=== PATIENT | male | born 1970 | race Caucasian/White ===

== ENCOUNTER 2016-05-31 14:26 | Emergency (ER) | payer MEDICARE | END 2016-05-31 14:45 | disposition home or self-care (01) | LOC: D.ER 14:26 | DX: M54.2 Cervicalgia (principal) ==

== ENCOUNTER 2016-06-03 08:34 | Emergency (ER) | payer MEDICARE | END 2016-06-03 09:00 | disposition home or self-care (01) | LOC: D.ER 08:34 | DX: M50.20 Other cervical disc displacement, unspecified cervical region (principal); F20.9 Schizophrenia, unspecified ==

== ENCOUNTER 2016-06-08 16:46 | Emergency (ER) | payer MEDICARE | END 2016-06-08 19:50 | disposition left against medical advice (07) | LOC: D.ER 16:46 | DX: M54.2 Cervicalgia (principal) ==

== ENCOUNTER 2016-06-09 09:57 | Emergency (ER) | payer MEDICARE | END 2016-06-09 10:03 | disposition left against medical advice (07) | LOC: D.ER 09:57 | DX: M54.9 Dorsalgia, unspecified (principal) ==

== ENCOUNTER 2016-06-10 12:08 | Emergency (ER) | payer MEDICARE | END 2016-06-10 13:41 | disposition home or self-care (01) | LOC: D.ER 12:08 | DX: M54.2 Cervicalgia (principal); F19.10 Other psychoactive substance abuse, uncomplicated ==

== ENCOUNTER 2016-06-11 14:28 | Emergency (ER) | payer MEDICARE | END 2016-06-11 17:56 | disposition home or self-care (01) | LOC: D.ER 14:28 | DX: Z03.89 Encounter for observation for other suspected diseases and conditions ruled out (principal); Z76.5 Malingerer [conscious simulation]; F17.200 Nicotine dependence, unspecified, uncomplicated ==

== ENCOUNTER 2016-06-12 14:44 | Emergency (ER) | payer MEDICARE | END 2016-06-12 15:00 | disposition left against medical advice (07) | LOC: D.ER 14:44 | DX: Z02.9 Encounter for administrative examinations, unspecified (principal) ==

== ENCOUNTER 2016-06-14 11:00 | Emergency (ER) | payer MEDICARE | END 2016-06-14 12:22 | disposition home or self-care (01) | LOC: D.ER 11:00 | DX: M54.5 Low back pain (principal); M54.2 Cervicalgia; F17.200 Nicotine dependence, unspecified, uncomplicated; Z76.5 Malingerer [conscious simulation] ==

== ENCOUNTER 2016-06-16 14:37 | Emergency (ER) | payer MEDICARE | END 2016-06-16 15:41 | disposition home or self-care (01) | LOC: D.ER 14:37 | DX: S16.1XXA Strain of muscle, fascia and tendon at neck level, initial encounter (principal); W11.XXXA Fall on and from ladder, initial encounter; Y93.89 Activity, other specified; Y92.89 Other specified places as the place of occurrence of the external cause; F17.200 Nicotine dependence, unspecified, uncomplicated ==

== ENCOUNTER 2016-06-17 11:01 | Emergency (ER) | payer MEDICARE ==
[2016-06-17 11:55] LABS: APPEARANCE CLEAR (CLEAR); BILIRUBIN NEGATIVE (NEGATIVE); COLOR YELLOW (YELLOW); GLUCOSE NEGATIVE (NEGATIVE); KETONE NEGATIVE (NEGATIVE); LEUKOCYTE ESTERASE NEGATIVE (NEGATIVE); NITRITE NEGATIVE (NEGATIVE); PROTEIN NEGATIVE (NEGATIVE); UROBILINOGEN NORMAL (NORMAL)
[2016-06-17 11:56] LABS: BACTERIA FEW /hpf (NONE SEEN); EPITHELIAL CELLS 0-5 /hpf (0-5); MUCUS >1+ /lpf (NONE SEEN); WHITE CELLS - URINE 0-5 /hpf (0-5)
[2016-06-17 12:03] LABS: HEMOGLOBIN 11.3 g/dL (13.5-17.5); MCH 28.3 pg (26.0-34.0); MCHC 31.4 g/dL (31.0-37.0); MEAN PLATELET VOLUME 9.6 fL (7.4-10.4); PLATELET COUNT 200 10x3/uL (130-400); RDW 15.4 % (11.5-14.5); WBC 2.8 10x3/uL (4.8-10.8)
[2016-06-17 12:10] LABS: ALBUMIN 3.7 g/dL (3.4-5.0); ALKALINE PHOSPHATASE 64 U/L (46-116); ALT (SGPT) 22 U/L (10-68); BILIRUBIN - TOTAL 0.31 mg/dL (0.2-1.3); CALC OSMOLALITY 281 mosm/kg (275-300); CARBON DIOXIDE 28.5 mmol/L (21.0-32.0); CHLORIDE - SERUM 106 mmol/L (98-107); CREATININE - SERUM 1.1 mg/dL (0.6-1.3); GLUCOSE 95 mg/dL (74-106); POTASSIUM - SERUM 4.1 mmol/L (3.5-5.1); PROTEIN - SERUM 6.7 g/dL (6.4-8.2); SODIUM 139 mmol/L (136-145); UREA NITROGEN 23 mg/dL (7-18); eGFR NON AFRICAN AMERICAN 76 mL/min (90-120)
[2016-06-17 12:25] LABS: LYMPHOCYTES 20 % (15-50); MONOCYTES 3 % (2-11); NEUTROPHILS 77 % (40-80); PLATELET ESTIMATE NORMAL
[2016-06-17 12:48] LABS: UDS - AMPHET NEGATIVE QUAL (NEGATIVE); UDS - BARB NEGATIVE QUAL (NEGATIVE); UDS - BENZO NEGATIVE QUAL (NEGATIVE); UDS - COCAINE NEGATIVE QUAL (NEGATIVE); UDS - METH NEGATIVE QUAL (NEGATIVE); UDS - OPIATE POSITIVE QUAL (NEGATIVE); UDS - PCP NEGATIVE QUAL (NEGATIVE); UDS - THC NEGATIVE QUAL (NEGATIVE)
== END 2016-06-17 12:55 | disposition home or self-care (01) ==
LOC: D.ER 11:01
PROVIDERS: Emergency Medicine
DX: Z76.0 Encounter for issue of repeat prescription (principal); M54.5 Low back pain; M54.2 Cervicalgia; F20.9 Schizophrenia, unspecified; F23 Brief psychotic disorder; F17.200 Nicotine dependence, unspecified, uncomplicated

== ENCOUNTER 2016-06-18 12:04 | Emergency (ER) | payer MEDICARE | END 2016-06-18 13:24 | disposition left against medical advice (07) | LOC: D.ER 12:04 | DX: Z02.9 Encounter for administrative examinations, unspecified (principal) ==

== ENCOUNTER 2016-06-20 00:24 | Emergency (ER) | payer MEDICARE | END 2016-06-20 01:30 | disposition home or self-care (01) | LOC: D.ER 00:24 | DX: Z76.5 Malingerer [conscious simulation] (principal); F17.200 Nicotine dependence, unspecified, uncomplicated ==

== ENCOUNTER 2016-07-05 11:38 | Emergency (ER) | payer MEDICARE | END 2016-07-05 15:08 | disposition home or self-care (01) | LOC: D.ER 11:38 | DX: M54.2 Cervicalgia (principal); Z76.5 Malingerer [conscious simulation]; F20.9 Schizophrenia, unspecified ==

== ENCOUNTER 2016-07-06 20:28 | Emergency (ER) | payer MEDICARE ==
[2016-07-06 21:39] LABS: BASOPHILS 0.7 % (0.0-2.0); EOSINOPHILS 2.5 % (0-7); HEMATOCRIT 36.1 % (42.0-54.0); HEMOGLOBIN 11.6 g/dL (13.5-17.5); IMMATURE GRANULOCYTES 0.2 % (0-5); LYMPHOCYTES 25.1 % (15-50); MCH 28.6 pg (26.0-34.0); MCHC 32.1 g/dL (31.0-37.0); MCV 88.9 fL (80.0-100.0); MEAN PLATELET VOLUME 10.2 fL (7.4-10.4); MONOCYTES 8.9 % (2-11); NEUTROPHILS 62.6 % (40-80); RBC 4.06 10x6/uL (4.20-6.10); RDW 15.3 % (11.5-14.5); WBC 5.6 10x3/uL (4.8-10.8)
[2016-07-06 21:40] LABS: PLATELET COUNT 268 10x3/uL (130-400)
[2016-07-06 21:50] LABS: ALBUMIN 3.8 g/dL (3.4-5.0); ALKALINE PHOSPHATASE 80 U/L (46-116); ALT (SGPT) 32 U/L (10-68); BILIRUBIN - TOTAL 0.29 mg/dL (0.2-1.3); CALC OSMOLALITY 279 mosm/kg (275-300); CALCIUM 8.7 mg/dL (8.5-10.1); CARBON DIOXIDE 31.8 mmol/L (21.0-32.0); CHLORIDE - SERUM 103 mmol/L (98-107); CREATININE - SERUM 0.9 mg/dL (0.6-1.3); GLUCOSE 79 mg/dL (74-106); PROTEIN - SERUM 6.9 g/dL (6.4-8.2); SODIUM 140 mmol/L (136-145); UREA NITROGEN 17 mg/dL (7-18); eGFR NON AFRICAN AMERICAN > 90 mL/min (90-120)
[2016-07-06 21:52] LABS: APPEARANCE CLEAR (CLEAR); BILIRUBIN NEGATIVE (NEGATIVE); COLOR YELLOW (YELLOW); GLUCOSE NEGATIVE (NEGATIVE); KETONE NEGATIVE (NEGATIVE); LEUKOCYTE ESTERASE NEGATIVE (NEGATIVE); NITRITE NEGATIVE (NEGATIVE); PROTEIN NEGATIVE (NEGATIVE); SPECIFIC GRAVITY 1.015 (1.005-1.020); UROBILINOGEN NORMAL (NORMAL)
[2016-07-06 21:53] LABS: BACTERIA NONE SEEN /hpf (NONE SEEN); EPITHELIAL CELLS NSEEN /hpf (0-5); RED CELLS - URINE 0-5 /hpf (0-5); WHITE CELLS - URINE NSEEN /hpf (0-5)
[2016-07-06 21:55] LABS: UDS - AMPHET NEGATIVE QUAL (NEGATIVE); UDS - BARB NEGATIVE QUAL (NEGATIVE); UDS - BENZO NEGATIVE QUAL (NEGATIVE); UDS - COCAINE NEGATIVE QUAL (NEGATIVE); UDS - METH NEGATIVE QUAL (NEGATIVE); UDS - OPIATE NEGATIVE QUAL (NEGATIVE); UDS - PCP NEGATIVE QUAL (NEGATIVE); UDS - THC NEGATIVE QUAL (NEGATIVE)
== END 2016-07-06 22:30 | disposition home or self-care (01) ==
LOC: D.ER 20:28
PROVIDERS: Physician Assistant Medical
DX: F11.10 Opioid abuse, uncomplicated (principal); F20.9 Schizophrenia, unspecified; F17.200 Nicotine dependence, unspecified, uncomplicated

== ENCOUNTER 2016-07-07 18:31 | Emergency (ER) | payer MEDICARE ==
[2016-07-07 19:48] LABS: BASOPHILS 0.6 % (0.0-2.0); EOSINOPHILS 2.2 % (0-7); HEMATOCRIT 33.8 % (42.0-54.0); HEMOGLOBIN 10.8 g/dL (13.5-17.5); LYMPHOCYTES 33.3 % (15-50); MCH 28.5 pg (26.0-34.0); MCV 89.2 fL (80.0-100.0); MONOCYTES 9.2 % (2-11); NEUTROPHILS 54.7 % (40-80); PLATELET COUNT 262 10x3/uL (130-400); RBC 3.79 10x6/uL (4.20-6.10); RDW 15.3 % (11.5-14.5)
[2016-07-07 19:53] LABS: ALBUMIN 3.7 g/dL (3.4-5.0); ANION GAP 9.7 mmol/L (8-16); BILIRUBIN - TOTAL 0.32 mg/dL (0.2-1.3); CALCIUM 8.7 mg/dL (8.5-10.1); CARBON DIOXIDE 30.4 mmol/L (21.0-32.0); POTASSIUM - SERUM 4.1 mmol/L (3.5-5.1); PROTEIN - SERUM 6.5 g/dL (6.4-8.2)
[2016-07-07 19:54] LABS: CREATININE - SERUM 1.2 mg/dL (0.6-1.3)
[2016-07-07 20:28] LABS: UDS - AMPHET NEGATIVE QUAL (NEGATIVE); UDS - BARB NEGATIVE QUAL (NEGATIVE); UDS - BENZO NEGATIVE QUAL (NEGATIVE); UDS - COCAINE NEGATIVE QUAL (NEGATIVE); UDS - METH NEGATIVE QUAL (NEGATIVE); UDS - OPIATE NEGATIVE QUAL (NEGATIVE); UDS - PCP NEGATIVE QUAL (NEGATIVE); UDS - THC NEGATIVE QUAL (NEGATIVE)
[2016-07-07 20:32] LABS: APPEARANCE CLEAR (CLEAR); BILIRUBIN NEGATIVE (NEGATIVE); COLOR YELLOW (YELLOW); GLUCOSE NEGATIVE (NEGATIVE); KETONE NEGATIVE (NEGATIVE); LEUKOCYTE ESTERASE NEGATIVE (NEGATIVE); NITRITE NEGATIVE (NEGATIVE); PROTEIN NEGATIVE (NEGATIVE); UROBILINOGEN NORMAL (NORMAL)
[2016-07-07 20:33] LABS: BACTERIA NONE SEEN /hpf (NONE SEEN); EPITHELIAL CELLS 0-5 /hpf (0-5); RED CELLS - URINE 0-5 /hpf (0-5); WHITE CELLS - URINE NSEEN /hpf (0-5)
== END 2016-07-08 02:57 ==
LOC: D.ER 18:31
PROVIDERS: Physician Assistant Medical
DX: R45.851 Suicidal ideations (principal); F32.9 Major depressive disorder, single episode, unspecified; F17.200 Nicotine dependence, unspecified, uncomplicated

== ENCOUNTER 2016-07-15 08:25 | Emergency (ER) | payer MEDICARE | END 2016-07-15 10:30 | disposition home or self-care (01) | LOC: D.ER 08:25 | DX: S16.1XXA Strain of muscle, fascia and tendon at neck level, initial encounter (principal); X58.XXXA Exposure to other specified factors, initial encounter; Y93.89 Activity, other specified; Y92.89 Other specified places as the place of occurrence of the external cause; F17.200 Nicotine dependence, unspecified, uncomplicated ==

== ENCOUNTER 2016-07-17 08:37 | Emergency (ER) | payer MEDICARE ==
[2016-07-17 08:58] LABS: BASOPHILS 0.7 % (0.0-2.0); EOSINOPHILS 3.4 % (0-7); HEMATOCRIT 37.6 % (42.0-54.0); HEMOGLOBIN 11.7 g/dL (13.5-17.5); LYMPHOCYTES 36.8 % (15-50); MCH 28.3 pg (26.0-34.0); MCHC 31.1 g/dL (31.0-37.0); MCV 90.8 fL (80.0-100.0); MEAN PLATELET VOLUME 9.8 fL (7.4-10.4); MONOCYTES 13.8 % (2-11); NEUTROPHILS 45.3 % (40-80); RBC 4.14 10x6/uL (4.20-6.10); RDW 15.5 % (11.5-14.5); WBC 4.1 10x3/uL (4.8-10.8)
[2016-07-17 09:10] LABS: PLATELET COUNT 193 10x3/uL (130-400)
[2016-07-17 09:17] LABS: ALBUMIN 3.9 g/dL (3.4-5.0); ALKALINE PHOSPHATASE 79 U/L (46-116); ALT (SGPT) 71 U/L (10-68); BILIRUBIN - TOTAL 0.34 mg/dL (0.2-1.3); CALC OSMOLALITY 280 mosm/kg (275-300); CALCIUM 8.8 mg/dL (8.5-10.1); CARBON DIOXIDE 33.6 mmol/L (21.0-32.0); CHLORIDE - SERUM 101 mmol/L (98-107); CREATININE - SERUM 0.9 mg/dL (0.6-1.3); GLUCOSE 84 mg/dL (74-106); POTASSIUM - SERUM 4.2 mmol/L (3.5-5.1); SODIUM 140 mmol/L (136-145); UREA NITROGEN 21 mg/dL (7-18); eGFR NON AFRICAN AMERICAN > 90 mL/min (90-120)
[2016-07-17 09:20] LABS: UDS - AMPHET NEGATIVE QUAL (NEGATIVE); UDS - BARB NEGATIVE QUAL (NEGATIVE); UDS - BENZO NEGATIVE QUAL (NEGATIVE); UDS - COCAINE NEGATIVE QUAL (NEGATIVE); UDS - METH NEGATIVE QUAL (NEGATIVE); UDS - OPIATE NEGATIVE QUAL (NEGATIVE); UDS - PCP NEGATIVE QUAL (NEGATIVE); UDS - THC NEGATIVE QUAL (NEGATIVE)
[2016-07-17 09:29] LABS: APPEARANCE CLEAR (CLEAR); BILIRUBIN NEGATIVE (NEGATIVE); COLOR YELLOW (YELLOW); GLUCOSE NEGATIVE (NEGATIVE); KETONE NEGATIVE (NEGATIVE); LEUKOCYTE ESTERASE NEGATIVE (NEGATIVE); NITRITE NEGATIVE (NEGATIVE); PROTEIN NEGATIVE (NEGATIVE); SPECIFIC GRAVITY 1.015 (1.005-1.020); UROBILINOGEN NORMAL (NORMAL)
== END 2016-07-17 09:35 | disposition home or self-care (01) ==
LOC: D.ER 08:37
PROVIDERS: Emergency Medicine Emergency Medical Services
DX: F20.9 Schizophrenia, unspecified (principal); F11.10 Opioid abuse, uncomplicated; F17.200 Nicotine dependence, unspecified, uncomplicated

== ENCOUNTER 2016-07-18 22:45 | Emergency (ER) | payer MEDICARE | END 2016-07-19 00:50 | disposition home or self-care (01) | LOC: D.ER 22:45 | DX: M62.830 Muscle spasm of back (principal); S29.012A Strain of muscle and tendon of back wall of thorax, initial encounter; V89.2XXA Person injured in unspecified motor-vehicle accident, traffic, initial encounter; Y93.89 Activity, other specified; Y92.410 Unspecified street and highway as the place of occurrence of the external cause; F17.200 Nicotine dependence, unspecified, uncomplicated ==

== ENCOUNTER 2016-07-21 17:01 | Emergency (ER) | payer MEDICARE | END 2016-07-21 17:02 | disposition left against medical advice (07) | LOC: D.ER 17:01 | DX: Z02.9 Encounter for administrative examinations, unspecified (principal) ==

== ENCOUNTER 2016-07-23 14:54 | Emergency (ER) | payer MEDICARE | END 2016-07-23 16:46 | disposition home or self-care (01) | LOC: D.ER 14:54 | DX: S01.111A Laceration without foreign body of right eyelid and periocular area, initial encounter (principal); Y04.2XXA Assault by strike against or bumped into by another person, initial encounter; Y93.89 Activity, other specified; Y92.019 Unspecified place in single-family (private) house as the place of occurrence of the external cause; R60.0 Localized edema; F17.200 Nicotine dependence, unspecified, uncomplicated ==

== ENCOUNTER 2016-07-25 10:15 | Emergency (ER) | payer MEDICARE | END 2016-07-25 11:35 | disposition home or self-care (01) | LOC: D.ER 10:15 | DX: S01.1 Open wound of eyelid and periocular area (principal); Y04.2XXS Assault by strike against or bumped into by another person, sequela; Y92.89 Other specified places as the place of occurrence of the external cause; F17.200 Nicotine dependence, unspecified, uncomplicated ==

== ENCOUNTER 2016-07-27 22:30 | Emergency (ER) | payer MEDICARE | END 2016-07-28 00:30 | disposition home or self-care (01) | LOC: D.ER 22:30 | DX: R51 Headache (principal); G89.29 Other chronic pain; F20.9 Schizophrenia, unspecified ==

== ENCOUNTER 2016-07-30 01:18 | Emergency (ER) | payer MEDICARE | END 2016-07-30 02:35 | disposition home or self-care (01) | LOC: D.ER 01:18 | DX: F41.9 Anxiety disorder, unspecified (principal); F20.9 Schizophrenia, unspecified; F31.9 Bipolar disorder, unspecified; F17.200 Nicotine dependence, unspecified, uncomplicated ==

== ENCOUNTER 2016-07-31 08:40 | Emergency (ER) | payer MEDICARE | END 2016-07-31 08:41 | disposition left against medical advice (07) | LOC: D.ER 08:40 | DX: Z02.9 Encounter for administrative examinations, unspecified (principal) ==

== ENCOUNTER 2016-08-01 14:57 | Emergency (ER) | payer MEDICARE | END 2016-08-01 15:04 | disposition left against medical advice (07) | LOC: D.ER 14:57 | DX: R52 Pain, unspecified (principal) ==

== ENCOUNTER 2016-08-01 15:12 | Emergency (ER) | payer MEDICARE | END 2016-08-01 21:22 | disposition left against medical advice (07) | LOC: D.ER 15:12 | DX: Z02.9 Encounter for administrative examinations, unspecified (principal) ==

== ENCOUNTER 2016-08-02 09:34 | Emergency (ER) | payer MEDICARE | END 2016-08-02 10:58 | LOC: D.ER 09:34 | DX: M54.2 Cervicalgia (principal); F20.9 Schizophrenia, unspecified; F41.1 Generalized anxiety disorder; F31.9 Bipolar disorder, unspecified; F17.200 Nicotine dependence, unspecified, uncomplicated ==

== ENCOUNTER 2016-09-28 16:19 | Emergency (ER) | payer MEDICARE | END 2016-09-28 20:10 | disposition home or self-care (01) | LOC: D.ER 16:19 | DX: S16.1XXA Strain of muscle, fascia and tendon at neck level, initial encounter (principal); X58.XXXA Exposure to other specified factors, initial encounter; Y93.89 Activity, other specified; Y92.89 Other specified places as the place of occurrence of the external cause; F95.2 Tourette's disorder; F20.9 Schizophrenia, unspecified; F17.200 Nicotine dependence, unspecified, uncomplicated ==

== ENCOUNTER 2016-09-29 08:59 | Emergency (ER) | payer MEDICARE | END 2016-09-29 09:52 | disposition home or self-care (01) | LOC: D.ER 08:59 | DX: Z76.0 Encounter for issue of repeat prescription (principal); F23 Brief psychotic disorder; F20.9 Schizophrenia, unspecified; F95.2 Tourette's disorder; F31.9 Bipolar disorder, unspecified; F17.200 Nicotine dependence, unspecified, uncomplicated ==

== ENCOUNTER 2016-09-30 08:35 | Emergency (ER) | payer MEDICARE | END 2016-09-30 08:55 | disposition home or self-care (01) | LOC: D.ER 08:35 | DX: F20.9 Schizophrenia, unspecified (principal); R51 Headache; F31.89 Other bipolar disorder; F17.200 Nicotine dependence, unspecified, uncomplicated ==

== ENCOUNTER 2016-10-03 03:23 | Emergency (ER) | payer MEDICARE | END 2016-10-03 03:42 | disposition home or self-care (01) | LOC: D.ER 03:23 | DX: L03.116 Cellulitis of left lower limb (principal); M72.2 Plantar fascial fibromatosis; F31.89 Other bipolar disorder; F20.9 Schizophrenia, unspecified; F95.2 Tourette's disorder ==

== ENCOUNTER → 2016-10-05 01:22 | Emergency (ER) | payer MEDICARE | END | disposition left against medical advice (07) | LOC: D.ER 01:22 | DX: Z02.9 Encounter for administrative examinations, unspecified (principal) ==

== ENCOUNTER 2016-10-05 10:34 | Emergency (ER) | payer MEDICARE | END 2016-10-05 13:42 | disposition home or self-care (01) | LOC: D.ER 10:34 | DX: Z02.9 Encounter for administrative examinations, unspecified (principal) ==

== ENCOUNTER 2016-10-06 12:04 | Emergency (ER) | payer MEDICARE | END 2016-10-06 14:08 | disposition home or self-care (01) | LOC: D.ER 12:04 | DX: G89.29 Other chronic pain (principal); S90.812A Abrasion, left foot, initial encounter; S90.811A Abrasion, right foot, initial encounter; X58.XXXA Exposure to other specified factors, initial encounter; Y93.89 Activity, other specified; Y92.89 Other specified places as the place of occurrence of the external cause; F31.89 Other bipolar disorder; F20.9 Schizophrenia, unspecified; F95.2 Tourette's disorder ==

== ENCOUNTER 2016-10-06 23:58 | Emergency (ER) | payer MEDICARE | END 2016-10-07 00:15 | disposition left against medical advice (07) | LOC: D.ER 23:58 | DX: T14.8 Other injury of unspecified body region (principal); Y04.2XXA Assault by strike against or bumped into by another person, initial encounter; Y93.89 Activity, other specified; Y92.89 Other specified places as the place of occurrence of the external cause ==

== ENCOUNTER 2016-10-07 16:13 | Emergency (ER) | payer MEDICARE | END 2016-10-07 16:48 | disposition home or self-care (01) | LOC: D.ER 16:13 | DX: Z02.9 Encounter for administrative examinations, unspecified (principal) ==

== ENCOUNTER 2016-10-08 03:02 | Emergency (ER) | payer MEDICARE ==
[2016-10-08 03:32] LABS: APPEARANCE CLEAR (CLEAR); BILIRUBIN 1+ (NEGATIVE); COLOR YELLOW (YELLOW); GLUCOSE NEGATIVE (NEGATIVE); KETONE SMALL mg/dL (NEGATIVE); LEUKOCYTE ESTERASE NEGATIVE (NEGATIVE); NITRITE NEGATIVE (NEGATIVE); PROTEIN NEGATIVE (NEGATIVE); SPECIFIC GRAVITY 1.025 (1.005-1.020); UROBILINOGEN NORMAL (NORMAL)
[2016-10-08 03:33] LABS: UDS - AMPHET NEGATIVE QUAL (NEGATIVE); UDS - BARB NEGATIVE QUAL (NEGATIVE); UDS - BENZO NEGATIVE QUAL (NEGATIVE); UDS - COCAINE POSITIVE QUAL (NEGATIVE); UDS - METH NEGATIVE QUAL (NEGATIVE); UDS - OPIATE NEGATIVE QUAL (NEGATIVE); UDS - PCP NEGATIVE QUAL (NEGATIVE); UDS - THC NEGATIVE QUAL (NEGATIVE)
[2016-10-08 03:35] LABS: BASOPHILS 0.4 % (0-2); EOSINOPHILS 1.6 % (0-7); HEMATOCRIT 39.5 % (42.0-54.0); HEMOGLOBIN 12.8 g/dL (13.5-17.5); LYMPHOCYTES 19.4 % (15-50); MCH 29.6 pg (26.0-34.0); MCHC 32.4 g/dL (31.0-37.0); MCV 91.2 fL (80.0-100.0); MEAN PLATELET VOLUME 9.9 fL (7.4-10.4); MONOCYTES 6.5 % (2-11); NEUTROPHILS 72.1 % (40-80); RBC 4.33 10x6/uL (4.20-6.10); RDW 14.7 % (11.5-14.5); WBC 5.1 10x3/uL (4.8-10.8)
[2016-10-08 03:36] LABS: PLATELET COUNT 282 10x3/uL (130-400)
[2016-10-08 03:47] LABS: ALKALINE PHOSPHATASE 108 U/L (46-116); ALT (SGPT) 38 U/L (10-68); BILIRUBIN - TOTAL 0.52 mg/dL (0.2-1.3); CALC OSMOLALITY 290 mosm/kg (275-300); CALCIUM 9.4 mg/dL (8.5-10.1); CARBON DIOXIDE 33.3 mmol/L (21.0-32.0); CHLORIDE - SERUM 106 mmol/L (98-107); CREATININE - SERUM 1.1 mg/dL (0.6-1.3); GLUCOSE 98 mg/dL (74-106); POTASSIUM - SERUM 3.7 mmol/L (3.5-5.1); PROTEIN - SERUM 7.6 g/dL (6.4-8.2); SODIUM 144 mmol/L (136-145); UREA NITROGEN 23 mg/dL (7-18); eGFR NON AFRICAN AMERICAN 76 mL/min (90-120)
== END 2016-10-08 05:35 | disposition home or self-care (01) ==
LOC: D.ER 03:02
PROVIDERS: Family Medicine
DX: F14.10 Cocaine abuse, uncomplicated (principal); F31.89 Other bipolar disorder; F20.9 Schizophrenia, unspecified

== ENCOUNTER 2017-03-19 18:58 | Emergency (ER) | payer MEDICARE | END 2017-03-19 20:53 | disposition home or self-care (01) | LOC: D.ER 18:58 | DX: L97.519 Non-pressure chronic ulcer of other part of right foot with unspecified severity (principal); Z76.0 Encounter for issue of repeat prescription; F17.200 Nicotine dependence, unspecified, uncomplicated ==

== ENCOUNTER 2017-03-20 19:00 | Emergency (ER) | payer MEDICARE | END 2017-03-20 20:09 | disposition home or self-care (01) | LOC: D.ER 19:00 | DX: F11.10 Opioid abuse, uncomplicated (principal) ==

== ENCOUNTER 2017-03-24 01:21 | Emergency (ER) | payer MEDICARE | END 2017-03-24 01:56 | disposition home or self-care (01) | LOC: D.ER 01:21 | DX: S90.811A Abrasion, right foot, initial encounter (principal); S90.812A Abrasion, left foot, initial encounter; W20.8XXA Other cause of strike by thrown, projected or falling object, initial encounter; Y93.89 Activity, other specified; Y92.029 Unspecified place in mobile home as the place of occurrence of the external cause; L97.519 Non-pressure chronic ulcer of other part of right foot with unspecified severity ==

== ENCOUNTER 2017-03-27 02:22 | Emergency (ER) | payer MEDICARE ==
[2017-03-27 04:24] LABS: BASOPHILS 0.7 % (0-2); EOSINOPHILS 1.5 % (0-7); HEMATOCRIT 32.4 % (42.0-54.0); HEMOGLOBIN 10.5 g/dL (13.5-17.5); LYMPHOCYTES 29.1 % (15-50); MCH 30.4 pg (26.0-34.0); MCHC 32.4 g/dL (31.0-37.0); MCV 93.9 fL (80.0-100.0); MEAN PLATELET VOLUME 9.8 fL (7.4-10.4); MONOCYTES 13.3 % (2-11); NEUTROPHILS 55.4 % (40-80); PLATELET COUNT 271 10x3/uL (130-400); RBC 3.45 10x6/uL (4.20-6.10); RDW 14.5 % (11.5-14.5); WBC 4.1 10x3/uL (4.8-10.8)
[2017-03-27 04:46] LABS: ALBUMIN 3.2 g/dL (3.4-5.0); ALKALINE PHOSPHATASE 147 U/L (46-116); ALT (SGPT) 81 U/L (10-68); BILIRUBIN - TOTAL 0.24 mg/dL (0.2-1.3); CALC OSMOLALITY 297 mosm/kg (275-300); CALCIUM 8.5 mg/dL (8.5-10.1); CHLORIDE - SERUM 110 mmol/L (98-107); CREATININE - SERUM 1.1 mg/dL (0.6-1.3); GLUCOSE 145 mg/dL (74-106); POTASSIUM - SERUM 3.6 mmol/L (3.5-5.1); PROTEIN - SERUM 6.5 g/dL (6.4-8.2); SODIUM 145 mmol/L (136-145); UREA NITROGEN 28 mg/dL (7-18); eGFR NON AFRICAN AMERICAN 76 mL/min (90-120)
[2017-03-27 07:43] LABS: UDS - AMPHET NEGATIVE QUAL (NEGATIVE); UDS - BARB NEGATIVE QUAL (NEGATIVE); UDS - BENZO NEGATIVE QUAL (NEGATIVE); UDS - COCAINE POSITIVE QUAL (NEGATIVE); UDS - OPIATE NEGATIVE QUAL (NEGATIVE); UDS - PCP NEGATIVE QUAL (NEGATIVE); UDS - THC NEGATIVE QUAL (NEGATIVE)
[2017-03-27 07:47] LABS: APPEARANCE CLEAR (CLEAR); BILIRUBIN NEGATIVE (NEGATIVE); COLOR YELLOW (YELLOW); GLUCOSE NEGATIVE (NEGATIVE); KETONE NEGATIVE (NEGATIVE); NITRITE NEGATIVE (NEGATIVE); PROTEIN NEGATIVE (NEGATIVE); SPECIFIC GRAVITY 1.025 (1.005-1.020)
== END 2017-03-27 07:55 | disposition home or self-care (01) ==
LOC: D.ER 02:22
PROVIDERS: Emergency Medicine
DX: F11.10 Opioid abuse, uncomplicated (principal); L97.509 Non-pressure chronic ulcer of other part of unspecified foot with unspecified severity; F17.200 Nicotine dependence, unspecified, uncomplicated

== ENCOUNTER 2017-03-29 09:56 | Emergency (ER) | payer MEDICARE ==
[2017-03-29 10:21] LABS: UDS - AMPHET POSITIVE QUAL (NEGATIVE); UDS - BARB NEGATIVE QUAL (NEGATIVE); UDS - BENZO NEGATIVE QUAL (NEGATIVE); UDS - COCAINE POSITIVE QUAL (NEGATIVE); UDS - OPIATE NEGATIVE QUAL (NEGATIVE); UDS - PCP NEGATIVE QUAL (NEGATIVE); UDS - THC NEGATIVE QUAL (NEGATIVE)
[2017-03-29 10:29] LABS: APPEARANCE HAZY (CLEAR); BILIRUBIN NEGATIVE (NEGATIVE); COLOR YELLOW (YELLOW); GLUCOSE NEGATIVE (NEGATIVE); KETONE SMALL mg/dL (NEGATIVE); NITRITE NEGATIVE (NEGATIVE); PROTEIN NEGATIVE (NEGATIVE); SPECIFIC GRAVITY 1.025 (1.005-1.020)
[2017-03-29 10:30] LABS: AMORPHOUS SEDIMENT <1+ /lpf (NONE SEEN); BACTERIA FEW /hpf (NONE SEEN); EPITHELIAL CELLS RARE /hpf (0-5); MUCUS <1+ /lpf (NONE SEEN); RED CELLS - URINE 0-5 /hpf (0-5)
[2017-03-29 11:00] LABS: BASOPHILS 0 % (0-2); EOSINOPHILS 0.6 % (0-7); HEMATOCRIT 34.3 % (42.0-54.0); IMMATURE GRANULOCYTES 0.2 % (0-5); LYMPHOCYTES 4.3 % (15-50); MCH 30.1 pg (26.0-34.0); MCHC 32.1 g/dL (31.0-37.0); MCV 93.7 fL (80.0-100.0); MEAN PLATELET VOLUME 9.7 fL (7.4-10.4); MONOCYTES 5.5 % (2-11); NEUTROPHILS 89.4 % (40-80); RBC 3.66 10x6/uL (4.20-6.10); RDW 14.3 % (11.5-14.5); WBC 4.9 10x3/uL (4.8-10.8)
[2017-03-29 11:08] LABS: PLATELET COUNT 204 10x3/uL (130-400)
[2017-03-29 11:21] LABS: ALBUMIN 3.2 g/dL (3.4-5.0); ALKALINE PHOSPHATASE 126 U/L (46-116); ALT (SGPT) 55 U/L (10-68); BILIRUBIN - TOTAL 0.53 mg/dL (0.2-1.3); CALC OSMOLALITY 277 mosm/kg (275-300); CALCIUM 8.4 mg/dL (8.5-10.1); CARBON DIOXIDE 27.6 mmol/L (21.0-32.0); CHLORIDE - SERUM 103 mmol/L (98-107); CREATININE - SERUM 0.8 mg/dL (0.6-1.3); GLUCOSE 120 mg/dL (74-106); POTASSIUM - SERUM 3.4 mmol/L (3.5-5.1); PROTEIN - SERUM 6.5 g/dL (6.4-8.2); SODIUM 137 mmol/L (136-145); UREA NITROGEN 21 mg/dL (7-18); eGFR NON AFRICAN AMERICAN > 90 mL/min (90-120)
== END 2017-03-29 13:10 | disposition home or self-care (01) ==
LOC: D.ER 09:56
PROVIDERS: Emergency Medicine
DX: Z81.8 Family history of other mental and behavioral disorders (principal); F31.9 Bipolar disorder, unspecified; F17.200 Nicotine dependence, unspecified, uncomplicated

== ENCOUNTER 2017-04-01 23:24 | Emergency (ER) | payer MEDICARE ==
[2017-04-02 00:17] LABS: APPEARANCE HAZY (CLEAR); BILIRUBIN NEGATIVE (NEGATIVE); COLOR YELLOW (YELLOW); GLUCOSE NEGATIVE (NEGATIVE); KETONE NEGATIVE (NEGATIVE); NITRITE NEGATIVE (NEGATIVE); PH 6.5 (5.0-6.0); PROTEIN NEGATIVE (NEGATIVE); SPECIFIC GRAVITY 1.015 (1.005-1.020)
[2017-04-02 00:21] LABS: UDS - AMPHET NEGATIVE QUAL (NEGATIVE); UDS - BARB NEGATIVE QUAL (NEGATIVE); UDS - BENZO NEGATIVE QUAL (NEGATIVE); UDS - COCAINE POSITIVE QUAL (NEGATIVE); UDS - OPIATE NEGATIVE QUAL (NEGATIVE); UDS - PCP NEGATIVE QUAL (NEGATIVE); UDS - THC NEGATIVE QUAL (NEGATIVE)
[2017-04-02 00:40] LABS: BASOPHILS 0.4 % (0-2); EOSINOPHILS 3.2 % (0-7); HEMATOCRIT 32.3 % (42.0-54.0); HEMOGLOBIN 10.4 g/dL (13.5-17.5); LYMPHOCYTES 39.2 % (15-50); MCHC 32.2 g/dL (31.0-37.0); MCV 93.1 fL (80.0-100.0); MEAN PLATELET VOLUME 9.9 fL (7.4-10.4); NEUTROPHILS 43.2 % (40-80); PLATELET COUNT 228 10x3/uL (130-400); RBC 3.47 10x6/uL (4.20-6.10); RDW 14.2 % (11.5-14.5); WBC 2.8 10x3/uL (4.8-10.8)
[2017-04-02 00:48] LABS: ALBUMIN 3.3 g/dL (3.4-5.0); ALKALINE PHOSPHATASE 105 U/L (46-116); ALT (SGPT) 44 U/L (10-68); BILIRUBIN - TOTAL 0.24 mg/dL (0.2-1.3); CALC OSMOLALITY 292 mosm/kg (275-300); CALCIUM 8.7 mg/dL (8.5-10.1); CARBON DIOXIDE 30.1 mmol/L (21.0-32.0); CHLORIDE - SERUM 108 mmol/L (98-107); CREATININE - SERUM 0.8 mg/dL (0.6-1.3); GLUCOSE 76 mg/dL (74-106); POTASSIUM - SERUM 3.3 mmol/L (3.5-5.1); PROTEIN - SERUM 6.6 g/dL (6.4-8.2); SODIUM 146 mmol/L (136-145); UREA NITROGEN 22 mg/dL (7-18); eGFR NON AFRICAN AMERICAN > 90 mL/min (90-120)
== END 2017-04-02 06:28 | disposition home or self-care (01) ==
LOC: D.ER 23:24
PROVIDERS: Emergency Medicine
DX: R45.851 Suicidal ideations (principal); F23 Brief psychotic disorder; F14.10 Cocaine abuse, uncomplicated; F41.9 Anxiety disorder, unspecified; F32.9 Major depressive disorder, single episode, unspecified; Z86.59 Personal history of other mental and behavioral disorders

== ENCOUNTER 2017-04-02 14:25 | Emergency (ER) | payer MEDICARE ==
[2017-04-02 15:25] LABS: BASOPHILS 0.2 % (0-2); EOSINOPHILS 2.6 % (0-7); HEMOGLOBIN 10.5 g/dL (13.5-17.5); LYMPHOCYTES 33.1 % (15-50); MCH 30.5 pg (26.0-34.0); MCHC 32.8 g/dL (31.0-37.0); MEAN PLATELET VOLUME 9.8 fL (7.4-10.4); MONOCYTES 12.6 % (2-11); NEUTROPHILS 51.5 % (40-80); PLATELET COUNT 212 10x3/uL (130-400); RBC 3.44 10x6/uL (4.20-6.10); RDW 14.1 % (11.5-14.5)
[2017-04-02 15:27] LABS: WBC 4.3 10x3/uL (4.8-10.8)
[2017-04-02 15:30] LABS: APPEARANCE CLEAR (CLEAR); BILIRUBIN NEGATIVE (NEGATIVE); COLOR YELLOW (YELLOW); GLUCOSE NEGATIVE (NEGATIVE); KETONE NEGATIVE (NEGATIVE); NITRITE NEGATIVE (NEGATIVE); PROTEIN NEGATIVE (NEGATIVE); SPECIFIC GRAVITY 1.025 (1.005-1.020); UROBILINOGEN NORMAL (NORMAL)
[2017-04-02 15:34] LABS: BACTERIA FEW /hpf (NONE SEEN); CALCIUM OXALATE CRYSTALS RARE /hpf (NONE SEEN); RED CELLS - URINE 0-5 /hpf (0-5); WHITE CELLS - URINE 0-5 /hpf (0-5)
[2017-04-02 15:55] LABS: ALBUMIN 3.3 g/dL (3.4-5.0); ALKALINE PHOSPHATASE 102 U/L (46-116); ALT (SGPT) 47 U/L (10-68); BILIRUBIN - TOTAL 0.27 mg/dL (0.2-1.3); CALC OSMOLALITY 284 mosm/kg (275-300); CALCIUM 8.5 mg/dL (8.5-10.1); CARBON DIOXIDE 29.4 mmol/L (21.0-32.0); CHLORIDE - SERUM 106 mmol/L (98-107); CREATININE - SERUM 0.7 mg/dL (0.6-1.3); GLUCOSE 82 mg/dL (74-106); PROTEIN - SERUM 6.3 g/dL (6.4-8.2); SODIUM 142 mmol/L (136-145); UREA NITROGEN 20 mg/dL (7-18); eGFR NON AFRICAN AMERICAN > 90 mL/min (90-120)
[2017-04-02 15:59] LABS: POTASSIUM - SERUM 3.8 mmol/L (3.5-5.1)
== END 2017-04-02 16:30 | disposition home or self-care (01) ==
LOC: D.ER 14:25
PROVIDERS: Emergency Medicine
DX: Z86.59 Personal history of other mental and behavioral disorders (principal); Z76.5 Malingerer [conscious simulation]; G89.29 Other chronic pain; F17.200 Nicotine dependence, unspecified, uncomplicated

== ENCOUNTER 2017-07-21 00:12 | Emergency (ER) | payer MEDICARE | END 2017-07-21 01:56 | disposition home or self-care (01) | LOC: D.ER 00:12 | DX: R22.9 Localized swelling, mass and lump, unspecified (principal); S00.83XA Contusion of other part of head, initial encounter; Y04.2XXA Assault by strike against or bumped into by another person, initial encounter; Y93.89 Activity, other specified; Y92.9 Unspecified place or not applicable; Z86.59 Personal history of other mental and behavioral disorders; F17.200 Nicotine dependence, unspecified, uncomplicated ==

== ENCOUNTER → 2017-07-22 16:55 | Emergency (ER) | payer MEDICARE | END | disposition left against medical advice (07) | LOC: D.ER 16:55 | DX: S00.83XA Contusion of other part of head, initial encounter (principal); S60.221A Contusion of right hand, initial encounter; Y04.2XXA Assault by strike against or bumped into by another person, initial encounter; Y93.89 Activity, other specified; Y92.89 Other specified places as the place of occurrence of the external cause; Z76.5 Malingerer [conscious simulation]; F17.200 Nicotine dependence, unspecified, uncomplicated ==

== ENCOUNTER 2017-07-22 22:16 | Emergency (ER) | payer MEDICARE ==
[2017-07-22 22:41] LABS: BASOPHILS 0.5 % (0-2); EOSINOPHILS 2.5 % (0-7); HEMATOCRIT 30.1 % (42.0-54.0); HEMOGLOBIN 9.4 g/dL (13.5-17.5); LYMPHOCYTES 23.8 % (15-50); MCH 26.6 pg (26.0-34.0); MCHC 31.2 g/dL (31.0-37.0); MCV 85.3 fL (80.0-100.0); MEAN PLATELET VOLUME 9.8 fL (7.4-10.4); MONOCYTES 9.5 % (2-11); NEUTROPHILS 63.7 % (40-80); PLATELET COUNT 188 10x3/uL (130-400); RBC 3.53 10x6/uL (4.20-6.10); RDW 16.6 % (11.5-14.5)
[2017-07-22 22:43] LABS: APPEARANCE CLEAR (CLEAR); BILIRUBIN NEGATIVE (NEGATIVE); COLOR YELLOW (YELLOW); GLUCOSE NEGATIVE (NEGATIVE); KETONE NEGATIVE (NEGATIVE); NITRITE NEGATIVE (NEGATIVE); PROTEIN NEGATIVE (NEGATIVE); UROBILINOGEN NORMAL (NORMAL)
[2017-07-22 22:51] LABS: UDS - AMPHET NEGATIVE QUAL (NEGATIVE); UDS - BARB NEGATIVE QUAL (NEGATIVE); UDS - BENZO NEGATIVE QUAL (NEGATIVE); UDS - COCAINE POSITIVE QUAL (NEGATIVE); UDS - OPIATE POSITIVE QUAL (NEGATIVE); UDS - PCP NEGATIVE QUAL (NEGATIVE); UDS - THC NEGATIVE QUAL (NEGATIVE)
[2017-07-22 22:56] LABS: ALBUMIN 3.5 g/dL (3.4-5.0); ALKALINE PHOSPHATASE 77 U/L (46-116); ALT (SGPT) 43 U/L (10-68); BILIRUBIN - TOTAL 0.34 mg/dL (0.2-1.3); CALC OSMOLALITY 286 mosm/kg (275-300); CALCIUM 8.8 mg/dL (8.5-10.1); CARBON DIOXIDE 27.9 mmol/L (21.0-32.0); CHLORIDE - SERUM 108 mmol/L (98-107); CREATININE - SERUM 0.9 mg/dL (0.6-1.3); POTASSIUM - SERUM 3.6 mmol/L (3.5-5.1); PROTEIN - SERUM 6.6 g/dL (6.4-8.2); SODIUM 142 mmol/L (136-145); UREA NITROGEN 17 mg/dL (7-18); eGFR NON AFRICAN AMERICAN > 90 mL/min (90-120)
[2017-07-22 22:57] LABS: GLUCOSE 128 mg/dL (74-106)
== END 2017-07-23 12:25 | disposition home or self-care (01) ==
LOC: D.ER 22:16
PROVIDERS: Family Medicine
DX: R45.851 Suicidal ideations (principal); F14.10 Cocaine abuse, uncomplicated; F11.10 Opioid abuse, uncomplicated

== ENCOUNTER 2017-08-07 15:14 | Emergency (ER) | payer MEDICARE | END 2017-08-07 17:40 | disposition home or self-care (01) | LOC: D.ER 15:14 | DX: M54.2 Cervicalgia (principal); L40.9 Psoriasis, unspecified ==

== ENCOUNTER 2017-08-09 00:51 | Emergency (ER) | payer MEDICARE | END 2017-08-09 01:30 | disposition left against medical advice (07) | LOC: D.ER 00:51 | DX: R51 Headache (principal); Y04.2XXA Assault by strike against or bumped into by another person, initial encounter; Y93.89 Activity, other specified; Y92.019 Unspecified place in single-family (private) house as the place of occurrence of the external cause; F17.200 Nicotine dependence, unspecified, uncomplicated ==

== ENCOUNTER 2017-08-10 04:15 | Emergency (ER) | payer MEDICARE ==
[2017-08-10 05:34] LABS: BASOPHILS 0.5 % (0-2); HEMATOCRIT 31.6 % (42.0-54.0); HEMOGLOBIN 10.2 g/dL (13.5-17.5); IMMATURE GRANULOCYTES 0.3 % (0-5); LYMPHOCYTES 27.2 % (15-50); MCHC 32.3 g/dL (31.0-37.0); MCV 83.6 fL (80.0-100.0); MEAN PLATELET VOLUME 9.9 fL (7.4-10.4); MONOCYTES 14.2 % (2-11); NEUTROPHILS 56.8 % (40-80); PLATELET COUNT 223 10x3/uL (130-400); RBC 3.78 10x6/uL (4.20-6.10); RDW 17.1 % (11.5-14.5); WBC 3.9 10x3/uL (4.8-10.8)
[2017-08-10 05:53] LABS: ALBUMIN 3.8 g/dL (3.4-5.0); ALKALINE PHOSPHATASE 74 U/L (46-116); ALT (SGPT) 43 U/L (10-68); CALC OSMOLALITY 284 mosm/kg (275-300); CALCIUM 8.7 mg/dL (8.5-10.1); CARBON DIOXIDE 25.6 mmol/L (21.0-32.0); CHLORIDE - SERUM 105 mmol/L (98-107); CREATININE - SERUM 0.9 mg/dL (0.6-1.3); GLUCOSE 127 mg/dL (74-106); MAGNESIUM - SERUM 1.8 mg/dL (1.8-2.4); POTASSIUM - SERUM 3.6 mmol/L (3.5-5.1); SODIUM 139 mmol/L (136-145); UREA NITROGEN 27 mg/dL (7-18); eGFR NON AFRICAN AMERICAN > 90 mL/min (90-120)
[2017-08-10 06:57] LABS: APPEARANCE CLEAR (CLEAR); BACTERIA FEW /hpf (NONE SEEN); BILIRUBIN NEGATIVE (NEGATIVE); COLOR YELLOW (YELLOW); EPITHELIAL CELLS RARE /hpf (0-5); GLUCOSE NEGATIVE (NEGATIVE); KETONE NEGATIVE (NEGATIVE); NITRITE NEGATIVE (NEGATIVE); PROTEIN NEGATIVE (NEGATIVE); RED CELLS - URINE 0-5 /hpf (0-5); UROBILINOGEN NORMAL (NORMAL); WHITE CELLS - URINE RARE /hpf (0-5)
[2017-08-10 06:58] LABS: UDS - AMPHET POSITIVE QUAL (NEGATIVE); UDS - BARB NEGATIVE QUAL (NEGATIVE); UDS - BENZO NEGATIVE QUAL (NEGATIVE); UDS - COCAINE POSITIVE QUAL (NEGATIVE); UDS - OPIATE NEGATIVE QUAL (NEGATIVE); UDS - PCP NEGATIVE QUAL (NEGATIVE); UDS - THC NEGATIVE QUAL (NEGATIVE)
== END 2017-08-10 07:26 | disposition left against medical advice (07) ==
LOC: D.ER 04:15
PROVIDERS: Family Medicine
DX: R45.851 Suicidal ideations (principal); Z86.59 Personal history of other mental and behavioral disorders; S00.83XA Contusion of other part of head, initial encounter; X58.XXXA Exposure to other specified factors, initial encounter; Y93.89 Activity, other specified; Y92.89 Other specified places as the place of occurrence of the external cause; R44.0 Auditory hallucinations; M79.672 Pain in left foot; M79.671 Pain in right foot; F17.200 Nicotine dependence, unspecified, uncomplicated

== ENCOUNTER 2017-08-10 09:36 | Emergency (ER) | payer MEDICARE | END 2017-08-10 09:52 | disposition left against medical advice (07) | LOC: D.ER 09:36 | DX: Z76.5 Malingerer [conscious simulation] (principal); Y04.2XXA Assault by strike against or bumped into by another person, initial encounter; Y93.89 Activity, other specified; Y92.9 Unspecified place or not applicable; F17.200 Nicotine dependence, unspecified, uncomplicated; Z86.59 Personal history of other mental and behavioral disorders ==

== ENCOUNTER 2017-08-12 07:50 | Emergency (ER) | payer MEDICARE | END 2017-08-12 09:45 | disposition home or self-care (01) | LOC: D.ER 07:50 | DX: S00.83XA Contusion of other part of head, initial encounter (principal); X58.XXXA Exposure to other specified factors, initial encounter; Y93.89 Activity, other specified; Y92.89 Other specified places as the place of occurrence of the external cause ==

== ENCOUNTER 2017-08-15 00:48 | Emergency (ER) | payer MEDICARE | END 2017-08-15 01:13 | disposition home or self-care (01) | LOC: D.ER 00:48 | DX: Z76.0 Encounter for issue of repeat prescription (principal) ==

== ENCOUNTER 2017-08-15 03:58 | Emergency (ER) | payer MEDICARE ==
[2017-08-15 05:00] LABS: BASOPHILS 0.4 % (0-2); EOSINOPHILS 1.6 % (0-7); HEMATOCRIT 34.3 % (42.0-54.0); HEMOGLOBIN 10.8 g/dL (13.5-17.5); LYMPHOCYTES 30.9 % (15-50); MCH 27.1 pg (26.0-34.0); MCHC 31.5 g/dL (31.0-37.0); MEAN PLATELET VOLUME 9.4 fL (7.4-10.4); MONOCYTES 9.2 % (2-11); NEUTROPHILS 57.9 % (40-80); PLATELET COUNT 252 10x3/uL (130-400); RBC 3.99 10x6/uL (4.20-6.10); RDW 17.4 % (11.5-14.5); WBC 4.5 10x3/uL (4.8-10.8)
[2017-08-15 05:15] LABS: ALBUMIN 4.2 g/dL (3.4-5.0); ALKALINE PHOSPHATASE 78 U/L (46-116); ALT (SGPT) 38 U/L (10-68); BILIRUBIN - TOTAL 0.58 mg/dL (0.2-1.3); CALC OSMOLALITY 281 mosm/kg (275-300); CALCIUM 9.1 mg/dL (8.5-10.1); CARBON DIOXIDE 28.3 mmol/L (21.0-32.0); CHLORIDE - SERUM 102 mmol/L (98-107); CREATININE - SERUM 0.9 mg/dL (0.6-1.3); GLUCOSE 85 mg/dL (74-106); POTASSIUM - SERUM 3.7 mmol/L (3.5-5.1); PROTEIN - SERUM 7.9 g/dL (6.4-8.2); SODIUM 140 mmol/L (136-145); UREA NITROGEN 24 mg/dL (7-18); eGFR NON AFRICAN AMERICAN > 90 mL/min (90-120)
[2017-08-15 05:19] LABS: UDS - AMPHET POSITIVE QUAL (NEGATIVE); UDS - BARB NEGATIVE QUAL (NEGATIVE); UDS - BENZO NEGATIVE QUAL (NEGATIVE); UDS - COCAINE POSITIVE QUAL (NEGATIVE); UDS - OPIATE NEGATIVE QUAL (NEGATIVE); UDS - PCP NEGATIVE QUAL (NEGATIVE); UDS - THC NEGATIVE QUAL (NEGATIVE)
[2017-08-15 05:22] LABS: APPEARANCE CLEAR (CLEAR); BILIRUBIN NEGATIVE (NEGATIVE); COLOR YELLOW (YELLOW); GLUCOSE NEGATIVE (NEGATIVE); KETONE SMALL mg/dL (NEGATIVE); NITRITE NEGATIVE (NEGATIVE); PROTEIN TRACE mg/dL (NEGATIVE); SPECIFIC GRAVITY 1.025 (1.005-1.020); UROBILINOGEN NORMAL (NORMAL)
[2017-08-15 05:23] LABS: BACTERIA NONE SEEN /hpf (NONE SEEN); EPITHELIAL CELLS 0-5 /hpf (0-5); RED CELLS - URINE 0-5 /hpf (0-5); WHITE CELLS - URINE 0-5 /hpf (0-5)
[2017-08-15 05:24] LABS: THYROID STIMULATING HORMONE 3.35 uIU/mL (0.36-3.74)
== END 2017-08-15 05:56 | disposition home or self-care (01) ==
LOC: D.ER 03:58
PROVIDERS: Emergency Medicine
DX: Z86.59 Personal history of other mental and behavioral disorders (principal); T40.4X5A Adverse effect of other synthetic narcotics, initial encounter; Y92.89 Other specified places as the place of occurrence of the external cause; Z91.14 Patient's other noncompliance with medication regimen; F15.10 Other stimulant abuse, uncomplicated; F14.10 Cocaine abuse, uncomplicated; F17.200 Nicotine dependence, unspecified, uncomplicated

== ENCOUNTER 2017-08-17 03:17 | Emergency (ER) | payer MEDICARE ==
[2017-08-17 03:52] LABS: BASOPHILS 0.2 % (0-2); EOSINOPHILS 1.2 % (0-7); HEMATOCRIT 33.7 % (42.0-54.0); HEMOGLOBIN 10.6 g/dL (13.5-17.5); IMMATURE GRANULOCYTES 0.2 % (0-5); LYMPHOCYTES 25.1 % (15-50); MCH 26.8 pg (26.0-34.0); MCHC 31.5 g/dL (31.0-37.0); MCV 85.1 fL (80.0-100.0); MEAN PLATELET VOLUME 9.3 fL (7.4-10.4); MONOCYTES 12.7 % (2-11); NEUTROPHILS 60.6 % (40-80); PLATELET COUNT 224 10x3/uL (130-400); RBC 3.96 10x6/uL (4.20-6.10); WBC 4.9 10x3/uL (4.8-10.8)
[2017-08-17 04:10] LABS: ALKALINE PHOSPHATASE 74 U/L (46-116); ALT (SGPT) 38 U/L (10-68); CALC OSMOLALITY 277 mosm/kg (275-300); CALCIUM 8.7 mg/dL (8.5-10.1); CARBON DIOXIDE 27.8 mmol/L (21.0-32.0); CHLORIDE - SERUM 102 mmol/L (98-107); CREATININE - SERUM 0.9 mg/dL (0.6-1.3); GLUCOSE 88 mg/dL (74-106); POTASSIUM - SERUM 3.7 mmol/L (3.5-5.1); PROTEIN - SERUM 7.3 g/dL (6.4-8.2); SODIUM 138 mmol/L (136-145); UREA NITROGEN 22 mg/dL (7-18); eGFR NON AFRICAN AMERICAN > 90 mL/min (90-120)
[2017-08-17 06:02] LABS: APPEARANCE CLEAR (CLEAR); BILIRUBIN NEGATIVE (NEGATIVE); COLOR YELLOW (YELLOW); GLUCOSE NEGATIVE (NEGATIVE); KETONE NEGATIVE (NEGATIVE); NITRITE NEGATIVE (NEGATIVE); PROTEIN NEGATIVE (NEGATIVE); SPECIFIC GRAVITY 1.015 (1.005-1.020); UROBILINOGEN NORMAL (NORMAL)
[2017-08-17 06:21] LABS: UDS - AMPHET NEGATIVE QUAL (NEGATIVE); UDS - BARB NEGATIVE QUAL (NEGATIVE); UDS - BENZO NEGATIVE QUAL (NEGATIVE); UDS - COCAINE POSITIVE QUAL (NEGATIVE); UDS - OPIATE NEGATIVE QUAL (NEGATIVE); UDS - PCP NEGATIVE QUAL (NEGATIVE); UDS - THC NEGATIVE QUAL (NEGATIVE)
== END 2017-08-17 19:50 ==
LOC: D.ER 03:17
PROVIDERS: Emergency Medicine
DX: R45.851 Suicidal ideations (principal); F33.9 Major depressive disorder, recurrent, unspecified; F17.200 Nicotine dependence, unspecified, uncomplicated

== ENCOUNTER 2017-08-23 18:02 | Emergency (ER) | payer MEDICARE | END 2017-08-23 19:50 | disposition home or self-care (01) | LOC: D.ER 18:02 | DX: M54.5 Low back pain (principal) ==

== ENCOUNTER 2017-08-24 17:06 | Emergency (ER) | payer MEDICARE | END 2017-08-24 18:45 | disposition home or self-care (01) | LOC: D.ER 17:06 | DX: M54.16 Radiculopathy, lumbar region (principal); R50.9 Fever, unspecified; R05 Cough; F17.200 Nicotine dependence, unspecified, uncomplicated ==

== ENCOUNTER 2017-08-31 23:50 | Emergency (ER) | payer MEDICARE ==
[2017-09-01 00:26] LABS: APPEARANCE CLEAR (CLEAR); BILIRUBIN NEGATIVE (NEGATIVE); COLOR YELLOW (YELLOW); GLUCOSE NEGATIVE (NEGATIVE); KETONE NEGATIVE (NEGATIVE); NITRITE NEGATIVE (NEGATIVE); PROTEIN NEGATIVE (NEGATIVE); SPECIFIC GRAVITY 1.015 (1.005-1.020); UROBILINOGEN NORMAL (NORMAL)
[2017-09-01 00:32] LABS: BASOPHILS 0.3 % (0-2); EOSINOPHILS 0.6 % (0-7); HEMATOCRIT 31.7 % (42.0-54.0); HEMOGLOBIN 10.1 g/dL (13.5-17.5); IMMATURE GRANULOCYTES 0.4 % (0-5); LYMPHOCYTES 14.5 % (15-50); MCH 26.7 pg (26.0-34.0); MCHC 31.9 g/dL (31.0-37.0); MCV 83.9 fL (80.0-100.0); MEAN PLATELET VOLUME 8.6 fL (7.4-10.4); MONOCYTES 7.1 % (2-11); NEUTROPHILS 77.1 % (40-80); RBC 3.78 10x6/uL (4.20-6.10); RDW 16.7 % (11.5-14.5); WBC 7.2 10x3/uL (4.8-10.8)
[2017-09-01 00:33] LABS: PLATELET COUNT 608 10x3/uL (130-400)
[2017-09-01 00:43] LABS: ALKALINE PHOSPHATASE 126 U/L (46-116); ALT (SGPT) 49 U/L (10-68); CALC OSMOLALITY 274 mosm/kg (275-300); CALCIUM 9.6 mg/dL (8.5-10.1); CARBON DIOXIDE 28.8 mmol/L (21.0-32.0); CHLORIDE - SERUM 97 mmol/L (98-107); CREATININE - SERUM 0.9 mg/dL (0.6-1.3); GLUCOSE 106 mg/dL (74-106); POTASSIUM - SERUM 4.6 mmol/L (3.5-5.1); PROTEIN - SERUM 8.4 g/dL (6.4-8.2); SODIUM 136 mmol/L (136-145); UREA NITROGEN 20 mg/dL (7-18); eGFR NON AFRICAN AMERICAN > 90 mL/min (90-120)
[2017-09-01 01:12] LABS: UDS - AMPHET NEGATIVE QUAL (NEGATIVE); UDS - BARB NEGATIVE QUAL (NEGATIVE); UDS - BENZO NEGATIVE QUAL (NEGATIVE); UDS - COCAINE POSITIVE QUAL (NEGATIVE); UDS - OPIATE NEGATIVE QUAL (NEGATIVE); UDS - PCP NEGATIVE QUAL (NEGATIVE); UDS - THC NEGATIVE QUAL (NEGATIVE)
== END 2017-09-01 11:02 | disposition home or self-care (01) ==
LOC: D.ER 23:50
PROVIDERS: Emergency Medicine
DX: F20.89 Other schizophrenia (principal); Z91.14 Patient's other noncompliance with medication regimen; R44.0 Auditory hallucinations; F14.10 Cocaine abuse, uncomplicated; F17.200 Nicotine dependence, unspecified, uncomplicated

== ENCOUNTER 2017-09-15 14:20 | Emergency (ER) | payer MEDICARE | END 2017-09-15 15:28 | disposition home or self-care (01) | LOC: D.ER 14:20 | DX: Z76.0 Encounter for issue of repeat prescription (principal); F23 Brief psychotic disorder; F17.200 Nicotine dependence, unspecified, uncomplicated ==

== ENCOUNTER 2017-09-15 23:07 | Emergency (ER) | payer MEDICARE ==
[2017-09-15 23:21] LABS: APPEARANCE CLEAR (CLEAR); BILIRUBIN NEGATIVE (NEGATIVE); COLOR DK YELLOW (YELLOW); GLUCOSE NEGATIVE (NEGATIVE); KETONE SMALL mg/dL (NEGATIVE); NITRITE NEGATIVE (NEGATIVE); PROTEIN NEGATIVE (NEGATIVE); UROBILINOGEN NORMAL (NORMAL)
[2017-09-15 23:27] LABS: BASOPHILS 0.3 % (0-2); EOSINOPHILS 0.8 % (0-7); HEMATOCRIT 30.8 % (42.0-54.0); HEMOGLOBIN 9.7 g/dL (13.5-17.5); LYMPHOCYTES 16.5 % (15-50); MCH 26.1 pg (26.0-34.0); MCHC 31.5 g/dL (31.0-37.0); MEAN PLATELET VOLUME 8.2 fL (7.4-10.4); MONOCYTES 10.6 % (2-11); NEUTROPHILS 71.8 % (40-80); PLATELET COUNT 268 10x3/uL (130-400); RBC 3.71 10x6/uL (4.20-6.10); RDW 16.4 % (11.5-14.5); WBC 3.9 10x3/uL (4.8-10.8)
[2017-09-15 23:39] LABS: ALBUMIN 3.3 g/dL (3.4-5.0); ALKALINE PHOSPHATASE 87 U/L (46-116); ALT (SGPT) 18 U/L (10-68); BILIRUBIN - TOTAL 0.23 mg/dL (0.2-1.3); CALC OSMOLALITY 276 mosm/kg (275-300); CALCIUM 9.4 mg/dL (8.5-10.1); CARBON DIOXIDE 27.5 mmol/L (21.0-32.0); CHLORIDE - SERUM 101 mmol/L (98-107); CREATININE - SERUM 0.9 mg/dL (0.6-1.3); GLUCOSE 91 mg/dL (74-106); POTASSIUM - SERUM 4.2 mmol/L (3.5-5.1); SODIUM 138 mmol/L (136-145); UREA NITROGEN 16 mg/dL (7-18); eGFR NON AFRICAN AMERICAN > 90 mL/min (90-120)
[2017-09-15 23:42] LABS: UDS - AMPHET NEGATIVE QUAL (NEGATIVE); UDS - BARB NEGATIVE QUAL (NEGATIVE); UDS - BENZO NEGATIVE QUAL (NEGATIVE); UDS - COCAINE POSITIVE QUAL (NEGATIVE); UDS - OPIATE POSITIVE QUAL (NEGATIVE); UDS - PCP NEGATIVE QUAL (NEGATIVE); UDS - THC NEGATIVE QUAL (NEGATIVE)
== END 2017-09-16 00:19 | disposition home or self-care (01) ==
LOC: D.ER 23:07
PROVIDERS: Emergency Medicine
DX: Z76.0 Encounter for issue of repeat prescription (principal); F23 Brief psychotic disorder; F17.200 Nicotine dependence, unspecified, uncomplicated; Z86.59 Personal history of other mental and behavioral disorders

== ENCOUNTER 2017-10-12 03:42 | Emergency (ER) | payer MEDICARE | END 2017-10-12 04:10 | disposition home or self-care (01) | LOC: D.ER 03:42 | DX: F23 Brief psychotic disorder (principal); F14.10 Cocaine abuse, uncomplicated; F17.200 Nicotine dependence, unspecified, uncomplicated ==

== ENCOUNTER 2017-10-13 01:57 | Emergency (ER) | payer MEDICARE ==
[2017-10-13 02:16] LABS: APPEARANCE CLEAR (CLEAR); BILIRUBIN NEGATIVE (NEGATIVE); COLOR YELLOW (YELLOW); GLUCOSE NEGATIVE (NEGATIVE); KETONE NEGATIVE (NEGATIVE); NITRITE NEGATIVE (NEGATIVE); PROTEIN NEGATIVE (NEGATIVE); UROBILINOGEN NORMAL (NORMAL)
[2017-10-13 02:19] LABS: BASOPHILS 0.3 % (0-2); EOSINOPHILS 0.9 % (0-7); HEMATOCRIT 32.9 % (42.0-54.0); HEMOGLOBIN 10.3 g/dL (13.5-17.5); IMMATURE GRANULOCYTES 0.1 % (0-5); LYMPHOCYTES 11.5 % (15-50); MCH 25.8 pg (26.0-34.0); MCHC 31.3 g/dL (31.0-37.0); MCV 82.5 fL (80.0-100.0); MEAN PLATELET VOLUME 9.1 fL (7.4-10.4); MONOCYTES 7.6 % (2-11); NEUTROPHILS 79.6 % (40-80); RBC 3.99 10x6/uL (4.20-6.10); RDW 16.3 % (11.5-14.5); WBC 7.9 10x3/uL (4.8-10.8)
[2017-10-13 02:24] LABS: UDS - AMPHET NEGATIVE QUAL (NEGATIVE); UDS - BARB NEGATIVE QUAL (NEGATIVE); UDS - BENZO NEGATIVE QUAL (NEGATIVE); UDS - COCAINE POSITIVE QUAL (NEGATIVE); UDS - OPIATE POSITIVE QUAL (NEGATIVE); UDS - PCP NEGATIVE QUAL (NEGATIVE); UDS - THC NEGATIVE QUAL (NEGATIVE)
[2017-10-13 02:31] LABS: ALBUMIN 3.4 g/dL (3.4-5.0); ALKALINE PHOSPHATASE 93 U/L (46-116); ALT (SGPT) 22 U/L (10-68); BILIRUBIN - TOTAL 0.23 mg/dL (0.2-1.3); CALC OSMOLALITY 279 mosm/kg (275-300); CALCIUM 9.1 mg/dL (8.5-10.1); CHLORIDE - SERUM 101 mmol/L (98-107); GLUCOSE 98 mg/dL (74-106); POTASSIUM - SERUM 3.8 mmol/L (3.5-5.1); SODIUM 138 mmol/L (136-145); UREA NITROGEN 23 mg/dL (7-18); eGFR NON AFRICAN AMERICAN 85 mL/min (90-120)
[2017-10-13 02:35] LABS: PLATELET COUNT 385 10x3/uL (130-400)
== END 2017-10-13 05:55 | disposition other institution (70) ==
LOC: D.ER 01:57
PROVIDERS: Family Medicine
DX: F33.9 Major depressive disorder, recurrent, unspecified (principal); F14.10 Cocaine abuse, uncomplicated; F15.10 Other stimulant abuse, uncomplicated; Z86.59 Personal history of other mental and behavioral disorders

== ENCOUNTER 2017-12-13 22:24 | Emergency (ER) | payer MEDICARE ==
[~2017-12-13] VITALS: Ht 177.8 cm; Wt 72.3 kg
[2017-12-13 22:33] VITALS: Ht 177.8 cm; Wt 72.3 kg
[2017-12-13 23:54] VITALS: BP 110/80
[2017-12-14] MEDS ORDERED: HYDROCODONE-APA1 TAB PO (07:15)
== END 2017-12-13 23:54 | disposition home or self-care (01) ==
LOC: D.ER 22:24
DX: R51 Headache (principal); Z76.5 Malingerer [conscious simulation]; Z86.59 Personal history of other mental and behavioral disorders; F17.200 Nicotine dependence, unspecified, uncomplicated

== ENCOUNTER 2017-12-14 06:49 | Emergency (ER) | payer MEDICARE ==
[~2017-12-14] VITALS: Ht 177.8 cm; Wt 72.3 kg
[2017-12-14 06:55] VITALS: BP 104/71; Ht 177.8 cm; Wt 72.3 kg
[2017-12-14] MEDS ORDERED: HYDROCODONE-APA1 TAB PO (07:15)
== END 2017-12-14 07:24 | disposition home or self-care (01) ==
LOC: D.ER 06:49
DX: R51 Headache (principal); M54.9 Dorsalgia, unspecified; F17.200 Nicotine dependence, unspecified, uncomplicated

== ENCOUNTER 2017-12-15 07:23 | Emergency (ER) | payer MEDICARE ==
[~2017-12-15] VITALS: Ht 177.8 cm; Wt 68.2 kg
[~2017-12-15 07:23] MED LIST: HYDROCODONE-APA1 TAB PO
[2017-12-15 07:29] VITALS: Ht 177.8 cm; Wt 68.2 kg
[2017-12-15 07:44] LABS: BASOPHILS 0.2 % (0-2); EOSINOPHILS 3.5 % (0-7); HEMATOCRIT 34.5 % (42.0-54.0); HEMOGLOBIN 11.2 g/dL (13.5-17.5); LYMPHOCYTES 23.5 % (15-50); MCH 27.1 pg (26.0-34.0); MCHC 32.5 g/dL (31.0-37.0); MCV 83.5 fL (80.0-100.0); MEAN PLATELET VOLUME 9.4 fL (7.4-10.4); MONOCYTES 13.6 % (2-11); NEUTROPHILS 59.2 % (40-80); RBC 4.13 10x6/uL (4.20-6.10); RDW 18.1 % (11.5-14.5); WBC 5.2 10x3/uL (4.8-10.8)
[2017-12-15 07:45] LABS: PLATELET COUNT 200 10x3/uL (130-400)
[2017-12-15 07:45] LABS: APPEARANCE CLEAR (CLEAR); BILIRUBIN NEGATIVE (NEGATIVE); COLOR YELLOW (YELLOW); GLUCOSE NEGATIVE (NEGATIVE); KETONE NEGATIVE (NEGATIVE); NITRITE NEGATIVE (NEGATIVE); PROTEIN NEGATIVE (NEGATIVE); UROBILINOGEN NORMAL (NORMAL)
[2017-12-15 07:47] LABS: BACTERIA FEW /hpf (NONE SEEN); CALCIUM OXALATE CRYSTALS 0-5 /hpf (NONE SEEN); EPITHELIAL CELLS 0-5 /hpf (0-5); MUCUS <1+ /lpf (NONE SEEN); RED CELLS - URINE 0-5 /hpf (0-5); UDS - AMPHET NEGATIVE QUAL (NEGATIVE); UDS - BARB NEGATIVE QUAL (NEGATIVE); UDS - BENZO NEGATIVE QUAL (NEGATIVE); UDS - COCAINE POSITIVE QUAL (NEGATIVE); UDS - OPIATE POSITIVE QUAL (NEGATIVE); UDS - PCP NEGATIVE QUAL (NEGATIVE); UDS - THC NEGATIVE QUAL (NEGATIVE); WHITE CELLS - URINE 0-5 /hpf (0-5)
[2017-12-15 08:18] LABS: ALBUMIN 4.2 g/dL (3.4-5.0); ALKALINE PHOSPHATASE 97 U/L (46-116); ALT (SGPT) 26 U/L (10-68); BILIRUBIN - TOTAL 0.36 mg/dL (0.2-1.3); CALC OSMOLALITY 276 mosm/kg (275-300); CALCIUM 9.1 mg/dL (8.5-10.1); CARBON DIOXIDE 31.5 mmol/L (21.0-32.0); CHLORIDE - SERUM 99 mmol/L (98-107); CREATININE - SERUM 0.9 mg/dL (0.6-1.3); GLUCOSE 106 mg/dL (74-106); POTASSIUM - SERUM 3.6 mmol/L (3.5-5.1); PROTEIN - SERUM 8.1 g/dL (6.4-8.2); SODIUM 136 mmol/L (136-145); UREA NITROGEN 27 mg/dL (7-18); eGFR NON AFRICAN AMERICAN > 90 mL/min (90-120)
[2017-12-15 19:04] VITALS: BP 102/54
== END 2017-12-15 19:07 ==
LOC: D.ER 07:23
PROVIDERS: Family Medicine
DX: R45.851 Suicidal ideations (principal); F31.9 Bipolar disorder, unspecified; F19.10 Other psychoactive substance abuse, uncomplicated; F17.200 Nicotine dependence, unspecified, uncomplicated

== ENCOUNTER 2018-01-09 22:42 | Emergency (ER) | payer MEDICARE ==
[~2018-01-09] VITALS: Ht 177.8 cm; Wt 72.3 kg
[2018-01-09 23:00] VITALS: Ht 177.8 cm; Wt 72.3 kg
[2018-01-10] MEDS ORDERED: ULTRAM50 MG PO (01:42)
[2018-01-10 02:20] VITALS: BP 144/92
== END 2018-01-10 01:59 | disposition home or self-care (01) ==
LOC: D.ER 22:42
DX: M54.5 Low back pain (principal); M54.31 Sciatica, right side; Z86.59 Personal history of other mental and behavioral disorders; F17.200 Nicotine dependence, unspecified, uncomplicated

== ENCOUNTER 2018-01-10 17:31 | Emergency (ER) | payer MEDICARE ==
[~2018-01-10] VITALS: Ht 177.8 cm; Wt 68.2 kg
[~2018-01-10 17:31] MED LIST changes: +ULTRAM50 MG PO
[2018-01-10 17:45] VITALS: Ht 177.8 cm; Wt 68.2 kg
[2018-01-10 18:27] LABS: BASOPHILS 0.3 % (0-2); EOSINOPHILS 0.5 % (0-7); HEMATOCRIT 29.7 % (42.0-54.0); HEMOGLOBIN 9.4 g/dL (13.5-17.5); IMMATURE GRANULOCYTES 0.1 % (0-5); LYMPHOCYTES 13.6 % (15-50); MCHC 31.6 g/dL (31.0-37.0); MCV 82.3 fL (80.0-100.0); MEAN PLATELET VOLUME 8.6 fL (7.4-10.4); MONOCYTES 11.5 % (2-11); RBC 3.61 10x6/uL (4.20-6.10); RDW 16.8 % (11.5-14.5); WBC 7.9 10x3/uL (4.8-10.8)
[2018-01-10 18:35] LABS: PLATELET COUNT 311 10x3/uL (130-400)
[2018-01-10 18:41] LABS: ALBUMIN 3.2 g/dL (3.4-5.0); ALKALINE PHOSPHATASE 151 U/L (46-116); ALT (SGPT) 17 U/L (10-68); BILIRUBIN - TOTAL 0.29 mg/dL (0.2-1.3); CALC OSMOLALITY 270 mosm/kg (275-300); CARBON DIOXIDE 30.6 mmol/L (21.0-32.0); CHLORIDE - SERUM 97 mmol/L (98-107); GLUCOSE 105 mg/dL (74-106); MAGNESIUM - SERUM 1.8 mg/dL (1.8-2.4); POTASSIUM - SERUM 4.4 mmol/L (3.5-5.1); PROTEIN - SERUM 7.9 g/dL (6.4-8.2); SODIUM 134 mmol/L (136-145); UREA NITROGEN 22 mg/dL (7-18); eGFR NON AFRICAN AMERICAN 85 mL/min (90-120)
[2018-01-10 18:42] LABS: APPEARANCE CLEAR (CLEAR); BILIRUBIN NEGATIVE (NEGATIVE); COLOR YELLOW (YELLOW); GLUCOSE NEGATIVE (NEGATIVE); KETONE NEGATIVE (NEGATIVE); NITRITE NEGATIVE (NEGATIVE); PROTEIN NEGATIVE (NEGATIVE); UROBILINOGEN NORMAL (NORMAL)
[2018-01-10 18:48] LABS: BACTERIA FEW /hpf (NONE SEEN); RED CELLS - URINE 0-5 /hpf (0-5); WHITE CELLS - URINE 0-5 /hpf (0-5)
[2018-01-10 18:49] LABS: UDS - AMPHET NEGATIVE QUAL (NEGATIVE); UDS - BARB NEGATIVE QUAL (NEGATIVE); UDS - BENZO NEGATIVE QUAL (NEGATIVE); UDS - COCAINE POSITIVE QUAL (NEGATIVE); UDS - OPIATE NEGATIVE QUAL (NEGATIVE); UDS - PCP NEGATIVE QUAL (NEGATIVE); UDS - THC NEGATIVE QUAL (NEGATIVE)
[2018-01-10 19:56] VITALS: BP 121/77
== END 2018-01-10 19:56 | disposition home or self-care (01) ==
LOC: D.ER 17:31
PROVIDERS: Family Medicine
DX: F14.10 Cocaine abuse, uncomplicated (principal); F41.9 Anxiety disorder, unspecified; F32.9 Major depressive disorder, single episode, unspecified; Z86.59 Personal history of other mental and behavioral disorders

== ENCOUNTER 2018-01-20 01:16 | Emergency (ER) | payer MEDICARE ==
[~2018-01-20] VITALS: Ht 177.8 cm; Wt 72.3 kg
[2018-01-20 01:17] VITALS: Ht 177.8 cm; Wt 72.3 kg
[2018-01-20 02:23] VITALS: BP 122/79
== END 2018-01-20 02:23 | disposition home or self-care (01) ==
LOC: D.ER 01:16
DX: M54.41 Lumbago with sciatica, right side (principal); Z76.5 Malingerer [conscious simulation]; F17.200 Nicotine dependence, unspecified, uncomplicated

== ENCOUNTER 2018-01-22 21:00 | Emergency (ER) | payer MEDICARE ==
[~2018-01-22] VITALS: Ht 177.8 cm; Wt 72.3 kg
[2018-01-22 21:02] VITALS: Ht 177.8 cm; Wt 72.3 kg
[2018-01-22 21:23] LABS: BASOPHILS 0.4 % (0-2); HEMATOCRIT 29.9 % (42.0-54.0); HEMOGLOBIN 9.5 g/dL (13.5-17.5); MCH 25.9 pg (26.0-34.0); MCHC 31.8 g/dL (31.0-37.0); MCV 81.5 fL (80.0-100.0); MEAN PLATELET VOLUME 8.7 fL (7.4-10.4); MONOCYTES 7.3 % (2-11); NEUTROPHILS 57.3 % (40-80); PLATELET COUNT 313 10x3/uL (130-400); RBC 3.67 10x6/uL (4.20-6.10); RDW 16.6 % (11.5-14.5); WBC 4.5 10x3/uL (4.8-10.8)
[2018-01-22 21:39] LABS: ALBUMIN 3.6 g/dL (3.4-5.0); ALKALINE PHOSPHATASE 94 U/L (46-116); ALT (SGPT) 13 U/L (10-68); BILIRUBIN - TOTAL 0.21 mg/dL (0.2-1.3); CALC OSMOLALITY 284 mosm/kg (275-300); CALCIUM 8.4 mg/dL (8.5-10.1); CARBON DIOXIDE 26.1 mmol/L (21.0-32.0); CHLORIDE - SERUM 106 mmol/L (98-107); GLUCOSE 108 mg/dL (74-106); POTASSIUM - SERUM 3.1 mmol/L (3.5-5.1); PROTEIN - SERUM 7.4 g/dL (6.4-8.2); SODIUM 141 mmol/L (136-145); UREA NITROGEN 21 mg/dL (7-18); eGFR NON AFRICAN AMERICAN 85 mL/min (90-120)
[2018-01-22 23:45] LABS: APPEARANCE CLEAR (CLEAR); BILIRUBIN NEGATIVE (NEGATIVE); COLOR YELLOW (YELLOW); GLUCOSE NEGATIVE (NEGATIVE); KETONE NEGATIVE (NEGATIVE); NITRITE NEGATIVE (NEGATIVE); PROTEIN 1+ mg/dL (NEGATIVE); UROBILINOGEN NORMAL (NORMAL)
[2018-01-22 23:49] LABS: BACTERIA FEW /hpf (NONE SEEN); CALCIUM OXALATE CRYSTALS 0-5 /hpf (NONE SEEN); EPITHELIAL CELLS 0-5 /hpf (0-5); HYALINE CAST 0-5 /lpf (NONE SEEN); MUCUS >1+ /lpf (NONE SEEN); RED CELLS - URINE 0-5 /hpf (0-5); UDS - AMPHET NEGATIVE QUAL (NEGATIVE); UDS - BARB NEGATIVE QUAL (NEGATIVE); UDS - BENZO NEGATIVE QUAL (NEGATIVE); UDS - COCAINE POSITIVE QUAL (NEGATIVE); UDS - OPIATE NEGATIVE QUAL (NEGATIVE); UDS - PCP NEGATIVE QUAL (NEGATIVE); UDS - THC NEGATIVE QUAL (NEGATIVE); WHITE CELLS - URINE 0-5 /hpf (0-5)
[2018-01-23] MEDS ORDERED: ULTRAM50 MG PO (07:41)
[2018-01-23 08:00] VITALS: BP 128/082
== END 2018-01-23 08:02 | disposition home or self-care (01) ==
LOC: D.ER 21:00
PROVIDERS: Family Medicine
DX: S51.812A Laceration without foreign body of left forearm, initial encounter (principal); S01.81XA Laceration without foreign body of other part of head, initial encounter; W25.XXXA Contact with sharp glass, initial encounter; Y93.89 Activity, other specified; Y92.511 Restaurant or cafe as the place of occurrence of the external cause; F20.9 Schizophrenia, unspecified; F19.10 Other psychoactive substance abuse, uncomplicated; F17.200 Nicotine dependence, unspecified, uncomplicated

== ENCOUNTER 2018-01-26 09:30 | Emergency (ER) | payer MEDICARE, MEDICAID ==
[~2018-01-26] VITALS: Ht 177.8 cm; Wt 68.0 kg
[2018-01-26 09:34] VITALS: Ht 177.8 cm; Wt 68.0 kg
[2018-01-26 10:10] LABS: BASOPHILS 0.5 % (0-2); EOSINOPHILS 2.8 % (0-7); HEMATOCRIT 28.9 % (42.0-54.0); IMMATURE GRANULOCYTES 0.3 % (0-5); LYMPHOCYTES 25.3 % (15-50); MCH 25.7 pg (26.0-34.0); MCHC 31.1 g/dL (31.0-37.0); MCV 82.6 fL (80.0-100.0); MEAN PLATELET VOLUME 9.1 fL (7.4-10.4); MONOCYTES 8.7 % (2-11); NEUTROPHILS 62.4 % (40-80); PLATELET COUNT 292 10x3/uL (130-400); RDW 16.7 % (11.5-14.5); WBC 3.9 10x3/uL (4.8-10.8)
[2018-01-26 10:24] LABS: ALBUMIN 3.1 g/dL (3.4-5.0); ALKALINE PHOSPHATASE 88 U/L (46-116); ALT (SGPT) 17 U/L (10-68); BILIRUBIN - TOTAL 0.22 mg/dL (0.2-1.3); CALC OSMOLALITY 284 mosm/kg (275-300); CARBON DIOXIDE 29.2 mmol/L (21.0-32.0); CHLORIDE - SERUM 107 mmol/L (98-107); CREATININE - SERUM 0.8 mg/dL (0.6-1.3); GLUCOSE 93 mg/dL (74-106); POTASSIUM - SERUM 3.5 mmol/L (3.5-5.1); PROTEIN - SERUM 6.5 g/dL (6.4-8.2); SODIUM 142 mmol/L (136-145); UREA NITROGEN 17 mg/dL (7-18); eGFR NON AFRICAN AMERICAN > 90 mL/min (90-120)
[2018-01-26 10:29] LABS: ALCOHOL - BLOOD (MEDICAL) < 3.0 mg/dL (0.0-10.0)
[2018-01-26 12:08] VITALS: BP 115/64
== END 2018-01-26 17:08 | disposition home or self-care (01) ==
LOC: D.ER 09:30
PROVIDERS: Family Medicine
DX: R44.0 Auditory hallucinations (principal); Z76.5 Malingerer [conscious simulation]; Z86.59 Personal history of other mental and behavioral disorders; F17.200 Nicotine dependence, unspecified, uncomplicated

== ENCOUNTER 2018-02-01 12:12 | Emergency (ER) | payer MEDICARE, MEDICAID ==
[~2018-02-01] VITALS: Ht 177.8 cm; Wt 72.3 kg
[2018-02-01 12:13] VITALS: Ht 177.8 cm; Wt 72.3 kg
[2018-02-01] MEDS ORDERED: ULTRAM50 MG PO (15:30)
[2018-02-01 15:35] VITALS: BP 157/103
== END 2018-02-01 15:35 | disposition home or self-care (01) ==
LOC: D.ER 12:12
DX: S41.112D Laceration without foreign body of left upper arm, subsequent encounter (principal); X58.XXXD Exposure to other specified factors, subsequent encounter

== ENCOUNTER 2019-11-03 22:22 | Emergency (ER) | payer MEDICARE ==
[~2019-11-03] VITALS: Ht 177.8 cm; Wt 72.3 kg
[2019-11-03 22:32] VITALS: Ht 177.8 cm; Wt 72.3 kg
[2019-11-03] MEDS ORDERED: FLUPHENAZINE H2.5 MG PO ×2 (22:34→23:09)
[2019-11-03] MEDS ORDERED: PROLIXIN DEC25 MG/ML IM (22:34)
[2019-11-03] MEDS ORDERED: VOLTAREN75 MG PO (23:09)
[2019-11-03 23:33] VITALS: BP 130/69
== END 2019-11-03 23:36 | disposition home or self-care (01) ==
LOC: D.ER 22:22
DX: M54.5 Low back pain (principal); Z76.0 Encounter for issue of repeat prescription; G89.29 Other chronic pain

== ENCOUNTER 2019-11-07 11:28 | Emergency (ER) | payer MEDICARE ==
[~2019-11-07] VITALS: Ht 177.8 cm; Wt 72.3 kg
[~2019-11-07 11:28] MED LIST changes: +FLUPHENAZINE H2.5 MG PO; +PROLIXIN DEC25 MG/ML IM; +VOLTAREN75 MG PO
[2019-11-07 11:35] VITALS: BP 127/74; Ht 177.8 cm; Wt 72.3 kg
[2019-11-07] MEDS ORDERED: LATUDA40 MG PO ×2 (11:39→12:01)
[2019-11-07] MEDS ORDERED: PROZAC20 MG PO (11:39)
[2019-11-07] MEDS ORDERED: BACLOFEN10 MG PO (12:01)
[2019-11-07] MEDS ORDERED: FLUPHENAZINE H2.5 MG PO (12:01)
== END 2019-11-07 12:12 | disposition home or self-care (01) ==
LOC: D.ER 11:28
DX: F20.0 Paranoid schizophrenia (principal); M54.5 Low back pain; G89.29 Other chronic pain

== ENCOUNTER 2019-11-12 01:04 | Emergency (ER) | payer MEDICARE ==
[~2019-11-12] VITALS: Ht 177.8 cm; Wt 72.3 kg
[~2019-11-12 01:04] MED LIST changes: +BACLOFEN10 MG PO; +LATUDA40 MG PO; +PROZAC20 MG PO
[2019-11-12 01:20] VITALS: Ht 177.8 cm; Wt 72.3 kg
== END 2019-11-12 01:49 | disposition home or self-care (01) ==
LOC: D.ER 01:04
DX: Z76.5 Malingerer [conscious simulation] (principal); M54.9 Dorsalgia, unspecified; G89.29 Other chronic pain; Z76.0 Encounter for issue of repeat prescription

== ENCOUNTER 2019-11-18 03:40 | Emergency (ER) | payer MEDICARE ==
[~2019-11-18] VITALS: Ht 177.8 cm; Wt 84.1 kg
[2019-11-18 03:49] VITALS: Ht 177.8 cm; Wt 84.1 kg
[2019-11-18] MEDS ORDERED: ULTRAM50 MG PO (03:59)
[2019-11-18 04:18] VITALS: BP 118/74
== END 2019-11-18 04:19 | disposition home or self-care (01) ==
LOC: D.ER 03:40
DX: M54.30 Sciatica, unspecified side (principal); M54.5 Low back pain; G89.29 Other chronic pain

== ENCOUNTER 2019-11-20 05:38 | Emergency (ER) | payer MEDICARE ==
[~2019-11-20] VITALS: Ht 177.8 cm; Wt 68.2 kg
[2019-11-20 05:49] VITALS: BP 112/72; Ht 177.8 cm; Wt 68.2 kg
[2019-11-20 06:32] LABS: BASOPHILS 0.3 % (0-2); EOSINOPHILS 3.5 % (0-7); HEMATOCRIT 38.8 % (42.0-54.0); LYMPHOCYTES 39.4 % (15-50); MCH 31.4 pg (26.0-34.0); MCHC 33.5 g/dL (31.0-37.0); MCV 93.7 fL (80.0-100.0); MEAN PLATELET VOLUME 9.5 fL (7.4-10.4); MONOCYTES 9.1 % (2-11); NEUTROPHILS 47.7 % (40-80); PLATELET COUNT 235 10x3/uL (130-400); RBC 4.14 10x6/uL (4.20-6.10); RDW 13.8 % (11.5-14.5); WBC 3.4 10x3/uL (4.8-10.8)
[2019-11-20 06:43] LABS: CALC OSMOLALITY 279 mosm/kg (275-300); CALCIUM 8.5 mg/dL (8.5-10.1); CARBON DIOXIDE 32.2 mmol/L (21.0-32.0); CHLORIDE - SERUM 103 mmol/L (98-107); GLUCOSE 89 mg/dL (74-106); POTASSIUM - SERUM 3.8 mmol/L (3.5-5.1); SODIUM 140 mmol/L (136-145); UREA NITROGEN 17 mg/dL (7-18); eGFR NON AFRICAN AMERICAN 84 mL/min (90-120)
--- NOTE | 2019-11-20 06:45 | NUR ---
DR MASON NOTIFIED AND SITTER ORDERED, SITTER AT BEDSIDE, CHARGE NURSE AND ATTENDING NOTIFIED OF ASSESSMENT FINDINGS, RESOURCES GIVEN TO PT AND SAFETY PLAN INITIATED.
[2019-11-20 06:49] LABS: ALBUMIN 3.7 g/dL (3.4-5.0); ALKALINE PHOSPHATASE 60 U/L (30-120); ALT (SGPT) 31 U/L (10-68); BILIRUBIN - TOTAL 0.34 mg/dL (0.2-1.3); PROTEIN - SERUM 6.8 g/dL (6.4-8.2)
[2019-11-20 07:29] LABS: UDS - AMPHET POSITIVE QUAL (NEGATIVE); UDS - BARB NEGATIVE QUAL (NEGATIVE); UDS - BENZO NEGATIVE QUAL (NEGATIVE); UDS - COCAINE POSITIVE QUAL (NEGATIVE); UDS - OPIATE NEGATIVE QUAL (NEGATIVE); UDS - PCP NEGATIVE QUAL (NEGATIVE); UDS - THC NEGATIVE QUAL (NEGATIVE)
[2019-11-20 07:48] LABS: BACTERIA FEW /hpf (NEGATIVE); BILIRUBIN NEGATIVE (NEGATIVE); EPITHELIAL CELLS OCC /hpf (0-5); GLUCOSE NEGATIVE (NEGATIVE); KETONE SMALL mg/dL (NEGATIVE); NITRITE NEGATIVE (NEGATIVE); RED CELLS - URINE 0-5 /hpf (0-5); UROBILINOGEN 4 mg/dL (NORMAL); WHITE CELLS - URINE RARE /hpf (NEGATIVE)
== END 2019-11-20 14:18 ==
LOC: D.ER 05:38
PROVIDERS: Family Medicine
DX: R45.851 Suicidal ideations (principal)

== ENCOUNTER 2019-11-27 02:32 | Emergency (ER) | payer MEDICARE ==
[~2019-11-27] VITALS: Ht 177.8 cm; Wt 72.3 kg
[2019-11-27 02:36] VITALS: BP 127/87; Ht 177.8 cm; Wt 72.3 kg
== END 2019-11-27 03:32 | disposition home or self-care (01) ==
LOC: D.ER 02:32
DX: M54.9 Dorsalgia, unspecified (principal); G89.29 Other chronic pain

== ENCOUNTER 2019-11-27 06:25 | Emergency (ER) | payer MEDICARE ==
[~2019-11-27] VITALS: Ht 177.8 cm; Wt 72.3 kg
[2019-11-27 06:36] VITALS: BP 131/68; Ht 177.8 cm; Wt 72.3 kg
[2019-11-27 07:17] LABS: BASOPHILS 0 % (0-2); EOSINOPHILS 0.7 % (0-7); HEMATOCRIT 42.6 % (42.0-54.0); IMMATURE GRANULOCYTES 0.2 % (0-5); LYMPHOCYTES 30.5 % (15-50); MCH 30.8 pg (26.0-34.0); MCHC 32.9 g/dL (31.0-37.0); MCV 93.8 fL (80.0-100.0); MEAN PLATELET VOLUME 10.8 fL (7.4-10.4); MONOCYTES 13.7 % (2-11); NEUTROPHILS 54.9 % (40-80); RBC 4.54 10x6/uL (4.20-6.10); RDW 13.5 % (11.5-14.5); WBC 4.2 10x3/uL (4.8-10.8)
[2019-11-27 07:20] LABS: ANION GAP 12.5 mmol/L (8-16); CALCIUM 9.7 mg/dL (8.5-10.1); CARBON DIOXIDE 30.1 mmol/L (21.0-32.0); CREATININE - SERUM 1.2 mg/dL (0.6-1.3); POTASSIUM - SERUM 4.6 mmol/L (3.5-5.1)
[2019-11-27 07:25] LABS: ALBUMIN 4.2 g/dL (3.4-5.0); BILIRUBIN - TOTAL 0.51 mg/dL (0.2-1.3); MAGNESIUM - SERUM 2.4 mg/dL (1.8-2.4); PROTEIN - SERUM 7.8 g/dL (6.4-8.2)
--- NOTE | 2019-11-27 07:30 | NUR ---
PATIENT IN ER 18 WITH THOUGHTS OF WANTING TO JUMP IN FRONT OF A CAR. HE DOES NOT HAVE ANY SIGNS OR SYMPTOMS OF ANXIETY. HE IS HERE OFTEN WITH THE SAME IDEATION BUT HAS NEVER TRIED. HE WILL BE PLACED ON ONE TO ONE. 1-800 NUMBER GIVEN PATIENT
[2019-11-27 07:38] LABS: PLATELET COUNT 155 10x3/uL (130-400)
[2019-11-27 08:20] LABS: UDS - AMPHET NEGATIVE QUAL (NEGATIVE); UDS - BARB NEGATIVE QUAL (NEGATIVE); UDS - BENZO NEGATIVE QUAL (NEGATIVE); UDS - COCAINE POSITIVE QUAL (NEGATIVE); UDS - OPIATE NEGATIVE QUAL (NEGATIVE); UDS - PCP NEGATIVE QUAL (NEGATIVE); UDS - THC NEGATIVE QUAL (NEGATIVE)
[2019-11-27 08:22] LABS: BACTERIA FEW /hpf (NEGATIVE); BILIRUBIN NEGATIVE (NEGATIVE); EPITHELIAL CELLS OCC /hpf (0-5); GLUCOSE NEGATIVE (NEGATIVE); KETONE NEGATIVE (NEGATIVE); NITRITE NEGATIVE (NEGATIVE); RED CELLS - URINE 0-5 /hpf (0-5); UROBILINOGEN NORMAL (NORMAL); WHITE CELLS - URINE RARE /hpf (NEGATIVE)
--- NOTE | 2019-11-27 13:34 | CN ---
PATIENT NAME:RADHA SHAW MEDICAL RECORD: [id number] : 70 LOCATION:.ER ADMIT DATE: ACCOUNT: [id number] CONSULTING PHYSICIAN: SKIP MASON MD REFERRING PHYSICIAN: BRYANT DORSEY MD DATE OF CONSULTATION: 11/27/2019 IDENTIFYING DATA: The patient is 49 years old and he is admitted to the Emergency Room. CHIEF COMPLAINT: "I just need pain meds." HISTORY OF PRESENT ILLNESS: The patient presents to the Emergency Room via ambulance. He says he has chronic back pain and needs pain medication. He tells me that he gets tramadol from his primary care doctor in [place]. He says the primary care doctor gives him 30 tablets and tells him to take 6 of the 50 mg tramadol daily. After those tablets are exhausted, he will often by pills on the street or he will go to various Emergency Rooms. He says that Dr. Zamarripa here has prescribed these for him in the past, but I did not check the PDMP on this. He also says that Dr. Harding at [facility] prescribes them for him, but that has been years ago when he was an inpatient there. The patient made some suicidal statements that he is now retracting. He says he was upset and wanted pain medicines. I have discussed with him the necessity of substance abuse treatment, which he flatly rejects. He admits that his statements are false regarding wanting to hurt himself and that he was only wanting pain medicine. He does have a number of depressive symptoms and some serious psychosocial stressors. ASSESSMENT: 1. Opiate dependence. 2. Cocaine abuse. 3. Adjustment disorder with depressed mood. 4. Borderline intellectual functioning. PLAN: The patient's core problem is substance abuse. He does not want treatment for this at this time. He was offered residential detox services or outpatient medication assisted treatment. At the end of the interview, he says he will go to or AA and knows where those meetings are. I hope he does so. He is not acutely dangerous. He does not require inpatient hospitalization. The behaviors that were displayed were purely manipulative in an attempt to obtain opiates. TRANSINT:[id number] Voice Confirmation ID: [id number] DOCUMENT ID: [id number] SKIP MASON MD at 1334 CC: [id number] DICTATION DATE: 11/27/19 1215 COMPLIANCE REVIEW OFFICER: 11/27/19 1239 DEP ER 11/27/19 [facility] [address] [id number]
== END 2019-11-27 11:55 ==
LOC: D.ER 06:25
PROVIDERS: Family Medicine
DX: M54.9 Dorsalgia, unspecified (principal); G89.29 Other chronic pain; Z76.5 Malingerer [conscious simulation]; R45.851 Suicidal ideations; F19.20 Other psychoactive substance dependence, uncomplicated

== ENCOUNTER 2019-11-30 08:53 | Emergency (ER) | payer MEDICARE ==
[2019-11-27 06:36] VITALS: BMI 22.8
== END 2019-11-30 09:23 | disposition left against medical advice (07) ==
LOC: D.ER 08:53
DX: M54.9 Dorsalgia, unspecified (principal)

== ENCOUNTER 2019-12-20 08:10 | Emergency (ER) | payer MEDICARE ==
[~2019-12-20] VITALS: Ht 177.8 cm; Wt 72.3 kg
[2019-12-20 08:11] VITALS: BP 127/81; Ht 177.8 cm; Wt 72.3 kg
[2019-12-20] MEDS ORDERED: HYDROCODON-ACE1 EAC7 PO (09:05)
== END 2019-12-20 09:18 | disposition home or self-care (01) ==
LOC: D.ER 08:10
DX: M54.31 Sciatica, right side (principal); S39.012A Strain of muscle, fascia and tendon of lower back, initial encounter; W19.XXXA Unspecified fall, initial encounter; Y93.9 Activity, unspecified; Y92.9 Unspecified place or not applicable; M51.36 Other intervertebral disc degeneration, lumbar region

== ENCOUNTER 2019-12-23 08:27 | Emergency (ER) | payer MEDICARE ==
[~2019-12-23] VITALS: Ht 177.8 cm; Wt 72.3 kg
[~2019-12-23 08:27] MED LIST changes: +HYDROCODON-ACE1 EAC7 PO
[2019-12-23 08:33] VITALS: BP 105/47; Ht 177.8 cm; Wt 72.3 kg
== END 2019-12-23 08:41 | disposition home or self-care (01) ==
LOC: D.ER 08:27
DX: Z76.5 Malingerer [conscious simulation] (principal); Z76.0 Encounter for issue of repeat prescription

== ENCOUNTER 2019-12-30 07:01 | Emergency (ER) | payer MEDICARE ==
[~2019-12-30] VITALS: Ht 177.8 cm; Wt 67.7 kg
[2019-12-30 07:11] VITALS: BP 119/71; Ht 177.8 cm; Wt 67.7 kg
== END 2019-12-30 08:17 | disposition home or self-care (01) ==
LOC: D.ER 07:01
DX: M54.9 Dorsalgia, unspecified (principal); G89.29 Other chronic pain; Z76.5 Malingerer [conscious simulation]

== ENCOUNTER 2020-01-04 08:53 | Emergency (ER) | payer MEDICARE ==
[2019-12-30 07:11] VITALS: BMI 21.4
== END 2020-01-04 09:15 | disposition home or self-care (01) ==
LOC: D.ER 08:53
DX: M54.9 Dorsalgia, unspecified (principal)

== ENCOUNTER 2020-01-05 02:15 | Emergency (ER) | payer MEDICARE ==
[~2020-01-05] VITALS: Ht 177.8 cm; Wt 75.0 kg
[2020-01-05 02:28] VITALS: Ht 177.8 cm; Wt 75.0 kg
--- NOTE | 2020-01-05 02:41 | NUR ---
PATIENT IN ER FOR PAIN BUT HEARING VOICES TELLING HIM TO JUMP IN FRONT OF A CAR. HE SAID HE HAS QUIT TAKING HIS MEDS AND HE WANTS TO . PATIENT WILL BE PALCED ON ONE TO ONE
--- NOTE | 2020-01-05 03:01 | NUR ---
DISCUSSED WITH ER DR. TSAI AND HE FEELS THAT THIS PATIENT DOES NOT NEED PSYCHIATRIC PLACEMENT AT THIS TIME.
[2020-01-05 03:44] VITALS: BP 108/71
== END 2020-01-05 03:44 | disposition home or self-care (01) ==
LOC: D.ER 02:15
DX: M54.9 Dorsalgia, unspecified (principal); G89.29 Other chronic pain

== ENCOUNTER 2020-01-05 15:30 | Emergency (ER) | payer MEDICARE ==
[~2020-01-05] VITALS: Ht 177.8 cm; Wt 68.2 kg
[2020-01-05 15:44] VITALS: Ht 177.8 cm; Wt 68.2 kg
[2020-01-05 16:09] LABS: BILIRUBIN NEGATIVE (NEGATIVE); GLUCOSE NEGATIVE (NEGATIVE); KETONE NEGATIVE (NEGATIVE); NITRITE NEGATIVE (NEGATIVE); UROBILINOGEN NORMAL (NORMAL)
[2020-01-05 16:17] LABS: UDS - AMPHET POSITIVE QUAL (NEGATIVE); UDS - BARB NEGATIVE QUAL (NEGATIVE); UDS - BENZO NEGATIVE QUAL (NEGATIVE); UDS - COCAINE POSITIVE QUAL (NEGATIVE); UDS - OPIATE NEGATIVE QUAL (NEGATIVE); UDS - PCP NEGATIVE QUAL (NEGATIVE); UDS - THC NEGATIVE QUAL (NEGATIVE)
[2020-01-05 16:35] LABS: BASOPHILS 0.3 % (0-2); EOSINOPHILS 1.7 % (0-7); HEMATOCRIT 32.5 % (42.0-54.0); HEMOGLOBIN 10.6 g/dL (13.5-17.5); LYMPHOCYTES 30.7 % (15-50); MCH 29.7 pg (26.0-34.0); MCHC 32.6 g/dL (31.0-37.0); MEAN PLATELET VOLUME 9.8 fL (7.4-10.4); NEUTROPHILS 54.3 % (40-80); RBC 3.57 10x6/uL (4.20-6.10); RDW 14.2 % (11.5-14.5)
[2020-01-05 16:37] LABS: PLATELET COUNT 222 10x3/uL (130-400)
[2020-01-05 16:46] LABS: CALC OSMOLALITY 281 mosm/kg (275-300); CALCIUM 7.9 mg/dL (8.5-10.1); CARBON DIOXIDE 21.5 mmol/L (21.0-32.0); CHLORIDE - SERUM 108 mmol/L (98-107); CREATININE - SERUM 0.9 mg/dL (0.6-1.3); GLUCOSE 113 mg/dL (74-106); POTASSIUM - SERUM 3.5 mmol/L (3.5-5.1); SODIUM 140 mmol/L (136-145); UREA NITROGEN 17 mg/dL (7-18); eGFR NON AFRICAN AMERICAN > 90 mL/min (90-120)
[2020-01-05 16:59] LABS: ALBUMIN 3.5 g/dL (3.4-5.0); ALKALINE PHOSPHATASE 50 U/L (30-120); ALT (SGPT) 18 U/L (10-68); BILIRUBIN - TOTAL 0.13 mg/dL (0.2-1.3); MAGNESIUM - SERUM 1.9 mg/dL (1.8-2.4); PROTEIN - SERUM 6.4 g/dL (6.4-8.2)
--- NOTE | 2020-01-06 11:48 | NUR ---
PT ADMITS TO ONLY SAYING HE WAS SUICIDAL TO GET PAIN MEDICATIONS. HE ALSO DENIES HALLUCINATIONS. PT STATED, "I USUALLY COME HERE TO GET MY PAIN MEDICINE, AND I SAID WHAT I HAD TO TO GET IT." COPING SKILLS REVIEWED WITH PT. PT VERY ANXIOUS AND DOES GET HYPERVERBAL AT TIMES. MODERATE RISK PER ASSESSMENT. PT IN SAFE ROOM. RESOURCES GIVEN AND REVIEWED WITH PT. NO SITTER NEEDED AT THIS TIME.
[2020-01-06 11:58] VITALS: BP 114/73
== END 2020-01-06 11:59 ==
LOC: D.ER 15:30
PROVIDERS: Emergency Medicine
DX: Z76.5 Malingerer [conscious simulation] (principal); R44.0 Auditory hallucinations; R45.851 Suicidal ideations

== ENCOUNTER 2020-02-05 23:13 | Emergency (ER) | payer MEDICARE ==
[~2020-02-05] VITALS: Ht 177.8 cm; Wt 70.5 kg
[2020-02-05 23:18] VITALS: Ht 177.8 cm; Wt 70.5 kg
[2020-02-05 23:51] VITALS: BP 113/59
== END 2020-02-05 23:51 | disposition home or self-care (01) ==
LOC: D.ER 23:13
DX: M54.5 Low back pain (principal); G89.29 Other chronic pain; Z76.5 Malingerer [conscious simulation]

== ENCOUNTER 2020-02-06 08:10 | Emergency (ER) | payer MEDICARE ==
[~2020-02-06] VITALS: Ht 177.8 cm; Wt 70.5 kg
[2020-02-06 08:24] VITALS: BP 131/76; Ht 177.8 cm; Wt 70.5 kg
[2020-02-06 08:50] LABS: BASOPHILS 0.7 % (0-2); EOSINOPHILS 2.7 % (0-7); HEMATOCRIT 30.4 % (42.0-54.0); HEMOGLOBIN 9.3 g/dL (13.5-17.5); LYMPHOCYTES 24.3 % (15-50); MCH 27.3 pg (26.0-34.0); MCHC 30.6 g/dL (31.0-37.0); MCV 89.1 fL (80.0-100.0); MEAN PLATELET VOLUME 9.7 fL (7.4-10.4); MONOCYTES 15.5 % (2-11); NEUTROPHILS 56.8 % (40-80); RBC 3.41 10x6/uL (4.20-6.10); RDW 15.3 % (11.5-14.5); WBC 4.5 10x3/uL (4.8-10.8)
[2020-02-06 09:01] LABS: PLATELET COUNT 341 10x3/uL (130-400)
[2020-02-06 09:02] LABS: CALC OSMOLALITY 285 mosm/kg (275-300); CALCIUM 8.9 mg/dL (8.5-10.1); CARBON DIOXIDE 27.4 mmol/L (21.0-32.0); CHLORIDE - SERUM 106 mmol/L (98-107); CREATININE - SERUM 0.9 mg/dL (0.6-1.3); GLUCOSE 98 mg/dL (74-106); POTASSIUM - SERUM 4.1 mmol/L (3.5-5.1); SODIUM 142 mmol/L (136-145); UREA NITROGEN 21 mg/dL (7-18); eGFR NON AFRICAN AMERICAN > 90 mL/min (90-120)
[2020-02-06 09:06] LABS: ALBUMIN 3.9 g/dL (3.4-5.0); ALKALINE PHOSPHATASE 65 U/L (30-120); ALT (SGPT) 43 U/L (10-68); BILIRUBIN - TOTAL 0.32 mg/dL (0.2-1.3); MAGNESIUM - SERUM 2.1 mg/dL (1.8-2.4)
[2020-02-06 09:14] LABS: UDS - AMPHET NEGATIVE QUAL (NEGATIVE); UDS - BARB NEGATIVE QUAL (NEGATIVE); UDS - BENZO NEGATIVE QUAL (NEGATIVE); UDS - COCAINE POSITIVE QUAL (NEGATIVE); UDS - OPIATE NEGATIVE QUAL (NEGATIVE); UDS - PCP NEGATIVE QUAL (NEGATIVE); UDS - THC NEGATIVE QUAL (NEGATIVE)
--- NOTE | 2020-02-06 09:20 | NUR ---
DR. JOE NOTIFIED AND REVIEWED PT'S BEHAVIOR AND ASSESSMENT RESULTS. PT IS A MODERATE RISK PER DR. MASON. DR. MASON STATED TO GIVE RESOURCES TO PT AT TIME OF DISCHARGE. NO FURTHER ORDERS AT THIS TIME. RESOUCRES REVIEWED WITH PT AND HE VERBALIZIED UNDERSTANDING.
[2020-02-06 09:27] LABS: BILIRUBIN NEGATIVE (NEGATIVE); KETONE NEGATIVE (NEGATIVE); NITRITE NEGATIVE (NEGATIVE)
== END 2020-02-06 09:53 | disposition home or self-care (01) ==
LOC: D.ER 08:10
PROVIDERS: Family Medicine
DX: Z76.5 Malingerer [conscious simulation] (principal); M54.9 Dorsalgia, unspecified; G89.29 Other chronic pain

== ENCOUNTER 2020-02-07 16:38 | Emergency (ER) | payer MEDICARE ==
[2020-02-07 16:40] VITALS: Ht 177.8 cm
[2020-02-07 17:29] LABS: BASOPHILS 0.7 % (0-2); EOSINOPHILS 3.1 % (0-7); HEMATOCRIT 24.8 % (42.0-54.0); HEMOGLOBIN 7.6 g/dL (13.5-17.5); LYMPHOCYTES 32.4 % (15-50); MCH 27.5 pg (26.0-34.0); MCHC 30.6 g/dL (31.0-37.0); MCV 89.9 fL (80.0-100.0); MEAN PLATELET VOLUME 9.4 fL (7.4-10.4); MONOCYTES 15.9 % (2-11); NEUTROPHILS 47.9 % (40-80); PLATELET COUNT 275 10x3/uL (130-400); RBC 2.76 10x6/uL (4.20-6.10); RDW 15.5 % (11.5-14.5); WBC 4.5 10x3/uL (4.8-10.8)
[2020-02-07 17:48] LABS: CALC OSMOLALITY 282 mosm/kg (275-300); CALCIUM 8.2 mg/dL (8.5-10.1); CARBON DIOXIDE 26.5 mmol/L (21.0-32.0); CHLORIDE - SERUM 107 mmol/L (98-107); GLUCOSE 106 mg/dL (74-106); SODIUM 140 mmol/L (136-145); UREA NITROGEN 24 mg/dL (7-18); eGFR NON AFRICAN AMERICAN 84 mL/min (90-120)
[2020-02-07 17:53] LABS: ACETAMINOPHEN 1.4 ug/mL (10.0-30.0); ALBUMIN 3.4 g/dL (3.4-5.0); ALKALINE PHOSPHATASE 70 U/L (30-120); ALT (SGPT) 42 U/L (10-68); BILIRUBIN - TOTAL 0.16 mg/dL (0.2-1.3); MAGNESIUM - SERUM 1.7 mg/dL (1.8-2.4); PROTEIN - SERUM 6.2 g/dL (6.4-8.2)
[2020-02-07 18:00] LABS: BILIRUBIN NEGATIVE (NEGATIVE); KETONE NEGATIVE (NEGATIVE); NITRITE NEGATIVE (NEGATIVE); UROBILINOGEN NORMAL mg/dL (< 2)
[2020-02-07 18:08] LABS: UDS - AMPHET NEGATIVE QUAL (NEGATIVE); UDS - BARB NEGATIVE QUAL (NEGATIVE); UDS - BENZO NEGATIVE QUAL (NEGATIVE); UDS - COCAINE POSITIVE QUAL (NEGATIVE); UDS - OPIATE NEGATIVE QUAL (NEGATIVE); UDS - PCP NEGATIVE QUAL (NEGATIVE); UDS - THC NEGATIVE QUAL (NEGATIVE)
[2020-02-07 18:32] LABS: HEMOGLOBIN 7.8 g/dL (13.5-17.5)
[2020-02-07 19:10] VITALS: BP 112/80
== END 2020-02-07 19:19 | disposition home or self-care (01) ==
LOC: D.ER 16:38
PROVIDERS: Family Medicine
DX: F20.9 Schizophrenia, unspecified (principal); D64.9 Anemia, unspecified; F14.10 Cocaine abuse, uncomplicated; R74.0 Nonspecific elevation of levels of transaminase and lactic acid dehydrogenase [LDH]; E83.51 Hypocalcemia; E83.42 Hypomagnesemia; R45.851 Suicidal ideations; R44.1 Visual hallucinations; R44.0 Auditory hallucinations

== ENCOUNTER 2020-02-09 15:51 | Inpatient (IN) | payer MEDICARE ==
[~2020-02-09] VITALS: Ht 177.8 cm; Wt 72.0 kg
--- NOTE | 2020-02-09 17:23 | NUR ---
URINE IN LAB
[2020-02-09 17:34] LABS: BASOPHILS 0.5 % (0-2); HEMATOCRIT 25.2 % (42.0-54.0); HEMOGLOBIN 7.6 g/dL (13.5-17.5); IMMATURE GRANULOCYTES 0.2 % (0-5); MCHC 30.2 g/dL (31.0-37.0); MCV 89.4 fL (80.0-100.0); MEAN PLATELET VOLUME 9.5 fL (7.4-10.4); MONOCYTES 9.3 % (2-11); PLATELET COUNT 298 10x3/uL (130-400); RBC 2.82 10x6/uL (4.20-6.10); RDW 15.5 % (11.5-14.5); WBC 4.4 10x3/uL (4.8-10.8)
[2020-02-09 17:57] LABS: BILIRUBIN NEGATIVE (NEGATIVE); KETONE NEGATIVE (NEGATIVE); NITRITE NEGATIVE (NEGATIVE); UROBILINOGEN NORMAL mg/dL (< 2)
[2020-02-09 18:04] LABS: CALC OSMOLALITY 282 mosm/kg (275-300); CALCIUM 8.2 mg/dL (8.5-10.1); CARBON DIOXIDE 25.5 mmol/L (21.0-32.0); CHLORIDE - SERUM 106 mmol/L (98-107); CREATININE - SERUM 1.1 mg/dL (0.6-1.3); GLUCOSE 98 mg/dL (74-106); POTASSIUM - SERUM 3.9 mmol/L (3.5-5.1); SODIUM 138 mmol/L (136-145); UREA NITROGEN 31 mg/dL (7-18); eGFR NON AFRICAN AMERICAN 75 mL/min (90-120)
[2020-02-09 18:05] LABS: UDS - AMPHET NEGATIVE QUAL (NEGATIVE); UDS - BARB NEGATIVE QUAL (NEGATIVE); UDS - BENZO NEGATIVE QUAL (NEGATIVE); UDS - COCAINE POSITIVE QUAL (NEGATIVE); UDS - OPIATE NEGATIVE QUAL (NEGATIVE); UDS - PCP NEGATIVE QUAL (NEGATIVE); UDS - THC NEGATIVE QUAL (NEGATIVE)
[2020-02-09 18:09] LABS: ALBUMIN 3.6 g/dL (3.4-5.0); ALKALINE PHOSPHATASE 71 U/L (30-120); ALT (SGPT) 37 U/L (10-68); BILIRUBIN - TOTAL 0.18 mg/dL (0.2-1.3); MAGNESIUM - SERUM 1.9 mg/dL (1.8-2.4); PROTEIN - SERUM 6.4 g/dL (6.4-8.2)
--- NOTE | 2020-02-09 18:28 | NUR ---
THIS NURSE ATTEMPTED TO COMPLETE SUICIDE ASSESSMENT AT THIS TIME. PT REQUESTED ASSESSMENT TO BE COMPLETED AT LATER TIME. PAIL TESTER TONIA NOTIFIED AND THIS NURSE WILL REPORT TO ON COMING CHARGE NURSE.
--- NOTE | 2020-02-09 19:39 | NUR ---
PT RESTING QUIETLY IN HALLWAY BED. EYES CLOSED. HAS EATEN DINNER.
[2020-02-09 21:38] LABS: % SATURATION 4 % (15-55); TOTAL IRON BIND CAPACITY 458 ug/dl (260-445); UNSAT IRON BIND CAPACITY 438 ug/dl (150-375)
--- NOTE | 2020-02-09 22:04 | NUR ---
COVID SWAB TO LAB AT THIS TIME.
[2020-02-09 22:33] VITALS: BP 77/35
--- NOTE | 2020-02-09 22:56 | NUR ---
PT'S STOOL FOR GUIAC POSITIVE. DR. MULLER MADE AWARE. PT CHANGED TO ICU ADMISSION.
--- NOTE | 2020-02-09 23:00 | NUR ---
PT DENIES ANY THOUGHTS OF SELF HARM AT THIS TIME.
[2020-02-09 23:25] VITALS: BP 89/48
[2020-02-10] VITALS (19 sets, daily range): BP systolic 89–170; BP diastolic 52–88; Ht 177.8 cm; Wt 72.0 kg
[2020-02-10 04:52] LABS: BASOPHILS 0.7 % (0-2); HEMATOCRIT 29.5 % (42.0-54.0); LYMPHOCYTES 43.9 % (15-50); MCHC 30.5 g/dL (31.0-37.0); MCV 88.6 fL (80.0-100.0); MEAN PLATELET VOLUME 9.8 fL (7.4-10.4); MONOCYTES 8.6 % (2-11); NEUTROPHILS 44.8 % (40-80); PLATELET COUNT 244 10x3/uL (130-400); RBC 3.33 10x6/uL (4.20-6.10); RDW 15.2 % (11.5-14.5)
[2020-02-10 05:05] LABS: CALC OSMOLALITY 282 mosm/kg (275-300); CALCIUM 7.6 mg/dL (8.5-10.1); CHLORIDE - SERUM 111 mmol/L (98-107); CREATININE - SERUM 0.9 mg/dL (0.6-1.3); GLUCOSE 90 mg/dL (74-106); POTASSIUM - SERUM 3.8 mmol/L (3.5-5.1); SODIUM 140 mmol/L (136-145); eGFR NON AFRICAN AMERICAN > 90 mL/min (90-120)
[2020-02-10 05:08] LABS: UREA NITROGEN 23 mg/dL (7-18)
--- NOTE | 2020-02-10 08:25 | NUR ---
ASKED PT FOR CONSENT FOR EGD AT BEDSIDE PT STARTED SAROJ STATED WANTED TO LEAVE AND WOULD NOT PROCEDE WITH EGD. OUTPATIENT CALLED DR WALKER NURSE UPDATED STATED OKAY.
[2020-02-10 15:00] LABS: HEMATOCRIT 28.3 % (42.0-54.0)
--- NOTE | 2020-02-10 16:35 | NUR ---
PT LEFT AMA AT THIS TIME, PT ESCORTED TO THE FRONT OF THE ER, AMA PAPER SIGNED
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
--- NOTE | 2020-02-11 12:01 | MORECARE ---
CASE MANAGEMENT DISCHARGE SUMMARY PATIENT: RADHA SHAW UNIT: [id number] ADM DATE: 02/09/20 AGE: 49 : 70 SEX: M ROOM/BED: D.2307 AUTHOR: CHARLI THORNTON PHYSICIAN: REFERRING PHYSICIAN: JUANA CARDONA MD DATE OF SERVICE: 02/11/20 Discharge Plan Patient Name: RADHA SHAW [facility] 1970 Planned Disposition: Anticipated Discharge Date: Discharge Date: 02/10/2020 Expected LOS: Initial Reviewer: [email or web address] Initial Review Date: 02/09/2020 Generated: 02/11/20 1:01 pm Patient Name: RADHA SHAW Page [phone] at 1201 All edits/amendments must be made on the electronic document DICTATION DATE: 02/11/20 1201 TENTER FEEDER: MEY 02/11/20 1201 RPT#: [id number] DC DATE:02/10/20 STATUS: DIS IN [facility] [address] [facility] [place] [address] END OF REPORT
== END 2020-02-10 16:35 | disposition left against medical advice (07) | DRG 812 ==
LOC: D.ER 15:51 → D.MS 21:32 → OBSVTIME 22:00 → D.ICU 23:05
PROVIDERS: Emergency Medicine; Family Medicine; ADMIT Legal Medicine; ATTEND Legal Medicine
DX: D64.9 Anemia, unspecified (principal); R45.851 Suicidal ideations; F20.9 Schizophrenia, unspecified; F14.10 Cocaine abuse, uncomplicated; F60.89 Other specific personality disorders; F17.200 Nicotine dependence, unspecified, uncomplicated

== ENCOUNTER 2020-02-22 12:41 | Emergency (ER) | payer MEDICARE ==
[2020-02-10 00:09] VITALS: BMI 22.7
== END 2020-02-22 12:45 | disposition left against medical advice (07) ==
LOC: D.ER 12:41
DX: M54.9 Dorsalgia, unspecified (principal)

== ENCOUNTER 2020-07-27 08:52 | Emergency (ER) | payer MEDICARE ==
[~2020-07-27] VITALS: Ht 177.8 cm; Wt 70.5 kg
[~2020-07-27 08:52] MED LIST changes: +DICLOFENAC SODI50 MG PO; +HYDROCODON-ACE1 EA10 PO; +THEREMS-M1 TAB PO
[2020-07-27 09:03] VITALS: Ht 177.8 cm; Wt 70.5 kg
[2020-07-27 09:25] LABS: BASOPHILS 0.9 % (0-2); EOSINOPHILS 2.3 % (0-7); HEMATOCRIT 29.7 % (42.0-54.0); HEMOGLOBIN 8.5 g/dL (13.5-17.5); LYMPHOCYTE ABS# 1.01 10x3/uL (1.32-3.57); LYMPHOCYTES 29.5 % (15-50); MCH 21.9 pg (26.0-34.0); MCHC 28.6 g/dL (31.0-37.0); MCV 76.3 fL (80.0-100.0); MEAN PLATELET VOLUME 9.3 fL (7.4-10.4); MONOCYTES 12.3 % (2-11); NEUTROPHIL ABS# 1.88 10x3/uL (1.78-5.38); RBC 3.89 10x6/uL (4.20-6.10); RDW 19.1 % (11.5-14.5); WBC 3.4 10x3/uL (4.8-10.8)
[2020-07-27 09:31] LABS: PLATELET COUNT 258 10x3/uL (130-400)
[2020-07-27 09:32] LABS: CALC OSMOLALITY 287 mosm/kg (275-300); CALCIUM 8.7 mg/dL (8.5-10.1); CARBON DIOXIDE 29.1 mmol/L (21.0-32.0); CHLORIDE - SERUM 106 mmol/L (98-107); CREATININE - SERUM 0.9 mg/dL (0.6-1.3); GLUCOSE 90 mg/dL (74-106); POTASSIUM - SERUM 3.4 mmol/L (3.5-5.1); SODIUM 143 mmol/L (136-145); UREA NITROGEN 20 mg/dL (7-18); eGFR NON AFRICAN AMERICAN > 90 mL/min (90-120)
[2020-07-27 09:38] LABS: ALBUMIN 3.9 g/dL (3.4-5.0); ALKALINE PHOSPHATASE 83 U/L (30-120); ALT (SGPT) 39 U/L (10-68); BILIRUBIN - TOTAL 0.26 mg/dL (0.2-1.3); MAGNESIUM - SERUM 1.9 mg/dL (1.8-2.4)
--- NOTE | 2020-07-27 10:25 | NUR ---
THIS NURSE ATTEMPTED TO COMPLETE SUICIDE ASSESSMENT. PT REFUSED ASSESSMENT AT THIS TIME. PT STATED " I HAVE BEEN UP FOR DAYS, I AM VERY PSYCHOTIC AND I WANT YOY TO LEAVE ME ALONE." PT STATED " I DO NOT FEEL LIKE ANSWERING YOUR QUESTIONS." CHARGE NURSE NOTIFIED AT THIS TIME. WILL ATTEMPT TO COMPLETE ASSESSMENT AT LATER TIME.
[2020-07-27 12:57] LABS: UDS - AMPHET NEGATIVE QUAL (NEGATIVE); UDS - BARB NEGATIVE QUAL (NEGATIVE); UDS - BENZO NEGATIVE QUAL (NEGATIVE); UDS - COCAINE POSITIVE QUAL (NEGATIVE); UDS - OPIATE NEGATIVE QUAL (NEGATIVE); UDS - PCP NEGATIVE QUAL (NEGATIVE); UDS - THC NEGATIVE QUAL (NEGATIVE)
[2020-07-27 13:04] LABS: KETONE NEGATIVE (NEGATIVE); NITRITE NEGATIVE (NEGATIVE)
[2020-07-27 13:05] LABS: BILIRUBIN NEGATIVE (NEGATIVE)
[2020-07-27 16:35] LABS: SARS-CoV-2 ANTIGEN NEGATIVE- SARS-COV-2 (NEGATIVE)
[2020-07-27 21:01] VITALS: BP 135/87
== END 2020-07-27 21:08 ==
LOC: D.ER 08:52
PROVIDERS: Family Medicine
DX: R45.851 Suicidal ideations (principal)

== ENCOUNTER 2020-08-09 22:16 | Emergency (ER) | payer MEDICARE ==
[~2020-08-09] VITALS: Ht 177.8 cm; Wt 63.6 kg
[2020-08-09 22:18] VITALS: BP 140/96; Ht 177.8 cm; Wt 63.6 kg
[2020-08-09 23:19] LABS: BASOPHILS 0.5 % (0-2); EOSINOPHILS 1.7 % (0-7); HEMOGLOBIN 8.5 g/dL (13.5-17.5); IMMATURE GRANULOCYTES 0.2 % (0-5); LYMPHOCYTE ABS# 1.57 10x3/uL (1.32-3.57); LYMPHOCYTES 27.2 % (15-50); MCHC 29.3 g/dL (31.0-37.0); MCV 75.1 fL (80.0-100.0); MEAN PLATELET VOLUME 9.3 fL (7.4-10.4); NEUTROPHIL ABS# 3.54 10x3/uL (1.78-5.38); NEUTROPHILS 61.4 % (40-80); PLATELET COUNT 273 10x3/uL (130-400); RBC 3.86 10x6/uL (4.20-6.10); RDW 18.6 % (11.5-14.5); WBC 5.8 10x3/uL (4.8-10.8)
[2020-08-09 23:32] LABS: CALC OSMOLALITY 282 mosm/kg (275-300); CALCIUM 8.8 mg/dL (8.5-10.1); CHLORIDE - SERUM 106 mmol/L (98-107); CREATININE - SERUM 1.2 mg/dL (0.6-1.3); GLUCOSE 124 mg/dL (74-106); POTASSIUM - SERUM 3.8 mmol/L (3.5-5.1); SODIUM 140 mmol/L (136-145); UREA NITROGEN 21 mg/dL (7-18); eGFR NON AFRICAN AMERICAN 68 mL/min (90-120)
[2020-08-09 23:58] LABS: ALBUMIN 4.3 g/dL (3.4-5.0); ALKALINE PHOSPHATASE 74 U/L (30-120); ALT (SGPT) 33 U/L (10-68); BILIRUBIN - TOTAL 0.41 mg/dL (0.2-1.3); CREATINE KINASE 365 UL (21-232); MAGNESIUM - SERUM 1.9 mg/dL (1.8-2.4); PROTEIN - SERUM 7.3 g/dL (6.4-8.2)
[2020-08-10] LABS: CKMB 3.9 U/L (0.0-3.6)
== END 2020-08-10 01:10 | disposition home or self-care (01) ==
LOC: D.ER 22:16
PROVIDERS: Family Medicine
DX: R41.82 Altered mental status, unspecified (principal); Z91.14 Patient's other noncompliance with medication regimen

== ENCOUNTER 2020-09-14 04:03 | Emergency (ER) | payer MEDICARE ==
[~2020-09-14] VITALS: Ht 177.8 cm; Wt 70.5 kg
[2020-09-14 04:07] VITALS: BP 136/84; Ht 177.8 cm; Wt 70.5 kg
== END 2020-09-14 04:30 | disposition home or self-care (01) ==
LOC: D.ER 04:03
DX: M54.5 Low back pain (principal); G89.29 Other chronic pain

== ENCOUNTER 2020-09-15 01:19 | Emergency (ER) | payer MEDICARE ==
[~2020-09-15] VITALS: Ht 177.8 cm; Wt 70.5 kg
[2020-09-15 01:26] VITALS: Ht 177.8 cm; Wt 70.5 kg
[2020-09-15 02:04] VITALS: BP 137/74
== END 2020-09-15 02:03 | disposition home or self-care (01) ==
LOC: D.ER 01:19
DX: M54.5 Low back pain (principal); G89.29 Other chronic pain